=== PATIENT | female | born 1945 | race Caucasian/White ===

== ENCOUNTER 2018-02-08 16:21 | Emergency (ER) | payer MEDICARE, MEDICAID ==
[~2018-02-08] VITALS: Ht 160 cm; Wt 73.0 kg
[~2018-02-08 16:21] MED LIST: AMLO5TAB16 PO; ARIP10TA9 PO; ATEN50TA41 PO; ATOR10TA87 PO; BACL10TA2 PO; BUSP5TAB PO; CHLO25TA2 PO; CHOL100046 PO; DEXL60CA3 PO; DONE-46 PO; GABA-532 PO; IBUP-1986 PO; LEVO25TA7 PO; LORA0.5T PO; LORA10TA7 PO; OXYB5TAB11 PO; PHEN15CA PO; POTA10TA36 PO; PRAZ1CAP5 PO; PRIM250T48 PO; SERT50TA10 PO
[2018-02-08 17:15] VITALS: BP 142/82
[2018-02-08] MEDS ORDERED: ALBU6.7H INH (17:19)
[2018-02-08] MEDS ORDERED: PRED20TA PO (17:19)
[2018-02-08] MEDS ORDERED: ketorolac tromethamine 15mg/ml inj. IM ONE (17:20)
[2018-02-08] MEDS ORDERED: albuterol 2.5 MG/3 ML nebule NEB ONE (17:20)
[2018-02-08] MEDS ORDERED: predniSONE 20 mg tablet PO ONE (17:20)
== END 2018-02-08 18:12 | disposition home or self-care (01) ==
LOC: ER 16:22
DX: J44.1 Chronic obstructive pulmonary disease with (acute) exacerbation (principal); I10 Essential (primary) hypertension; K21.9 Gastro-esophageal reflux disease without esophagitis; G89.29 Other chronic pain; Z88.2 Allergy status to sulfonamides; Z60.2 Problems related to living alone; Z79.899 Other long term (current) drug therapy
CPT/HCPCS: 93005; 94640; 94760; 96372; 99283; J1885; J7512; 99285

== ENCOUNTER 2018-04-03 20:49 | Emergency (ER) | payer MEDICARE, MEDICAID ==
[~2018-04-03] VITALS: Ht 160 cm; Wt 78.1 kg
[~2018-04-03 20:49] MED LIST changes: +ALBU6.7H INH
[2018-04-03] MEDS ORDERED: ketorolac trometh. 30mg/ml inj. IM ONE (21:20)
[2018-04-03 21:53] VITALS: BP 134/77
== END 2018-04-03 21:55 | disposition home or self-care (01) ==
LOC: ER 20:50
DX: S16.1XXA Strain of muscle, fascia and tendon at neck level, initial encounter (principal); I10 Essential (primary) hypertension; J44.9 Chronic obstructive pulmonary disease, unspecified; K21.9 Gastro-esophageal reflux disease without esophagitis; Z86.19 Personal history of other infectious and parasitic diseases; G89.29 Other chronic pain; Z60.2 Problems related to living alone; Z88.2 Allergy status to sulfonamides; Z88.8 Allergy status to other drugs, medicaments and biological substances; Z79.899 Other long term (current) drug therapy; V89.2XXA Person injured in unspecified motor-vehicle accident, traffic, initial encounter; Y93.89 Activity, other specified; Y92.89 Other specified places as the place of occurrence of the external cause; Y99.8 Other external cause status
CPT/HCPCS: 96372; 99283; J1885

== ENCOUNTER 2018-08-24 14:25 | Emergency (ER) | payer MEDICARE, MEDICAID ==
[~2018-08-24] VITALS: Ht 160 cm; Wt 64.0 kg
[2018-08-24 14:34] VITALS: BP 111/60
[2018-08-24] MEDS ORDERED: LIDOcaine 5% patch TP ONE (15:20)
[2018-08-24] MEDS ORDERED: acetaminophen 325mg tablet PO ONE (15:20)
[2018-08-24] MEDS ORDERED: LIDO700A32 TOP (15:23)
[2018-08-24] MEDS ORDERED: ACET-812 PO (15:23)
== END 2018-08-24 16:18 | disposition home or self-care (01) ==
LOC: ER 14:25
DX: G89.29 Other chronic pain (principal); M25.561 Pain in right knee; I10 Essential (primary) hypertension; J44.9 Chronic obstructive pulmonary disease, unspecified; K21.9 Gastro-esophageal reflux disease without esophagitis; Z60.2 Problems related to living alone; Z86.19 Personal history of other infectious and parasitic diseases; Z88.2 Allergy status to sulfonamides; Z88.8 Allergy status to other drugs, medicaments and biological substances; Z79.899 Other long term (current) drug therapy
CPT/HCPCS: 99283

== ENCOUNTER 2018-10-11 17:17 | Emergency (ER) | payer MEDICARE, MEDICAID ==
[~2018-10-11] VITALS: Ht 160 cm; Wt 74.1 kg
[~2018-10-11 17:17] MED LIST changes: +LIDO700A32 TOP
[2018-10-11 17:19] VITALS: BP 152/69
--- NOTE | 2018-10-11 17:28 | NUR ---
AAMIR DURÁN IN TO SEE PT IN TRIAGE. PT STABLE TO WAIT IN LOBBY
[2018-10-11] MEDS ORDERED: dexamethasone sod phosphate 10mg/ml inj PO STA (18:57)
[2018-10-11] MEDS ORDERED: cetirizine 10mg tablet PO ONE (19:00)
[2018-10-11] MEDS ORDERED: CETI-102 PO (19:02)
== END 2018-10-11 19:20 | disposition home or self-care (01) ==
LOC: ER 17:17
DX: L53.8 Other specified erythematous conditions (principal); T46.7X5A Adverse effect of peripheral vasodilators, initial encounter; L29.9 Pruritus, unspecified; I10 Essential (primary) hypertension; J44.9 Chronic obstructive pulmonary disease, unspecified; K21.9 Gastro-esophageal reflux disease without esophagitis; G89.29 Other chronic pain; Z88.2 Allergy status to sulfonamides; Z88.8 Allergy status to other drugs, medicaments and biological substances; Z79.899 Other long term (current) drug therapy; Y92.89 Other specified places as the place of occurrence of the external cause
CPT/HCPCS: 99283; J1100

== ENCOUNTER 2019-02-16 14:33 | Emergency (ER) | payer MEDICARE, MEDICAID ==
[~2019-02-16] VITALS: Ht 160 cm; Wt 72.7 kg
[~2019-02-16 14:33] MED LIST changes: +CETI-102 PO
[2019-02-16 14:38] VITALS: BP 146/68
[2019-02-16] MEDS ORDERED: ketorolac trometh. 30mg/ml inj. IM ONE (14:55)
[2019-02-16] MEDS ORDERED: TRAM50TA2 PO (15:27)
== END 2019-02-16 15:48 | disposition home or self-care (01) ==
LOC: ER 14:33
DX: S82.001A Unspecified fracture of right patella, initial encounter for closed fracture (principal); G89.29 Other chronic pain; I10 Essential (primary) hypertension; J44.9 Chronic obstructive pulmonary disease, unspecified; K21.9 Gastro-esophageal reflux disease without esophagitis; Z86.19 Personal history of other infectious and parasitic diseases; Z60.2 Problems related to living alone; Z88.2 Allergy status to sulfonamides; Z88.8 Allergy status to other drugs, medicaments and biological substances; Z79.899 Other long term (current) drug therapy; X58.XXXA Exposure to other specified factors, initial encounter; Y93.89 Activity, other specified; Y92.89 Other specified places as the place of occurrence of the external cause; Y99.8 Other external cause status
CPT/HCPCS: 73564; 96372; 99283; J1885

== ENCOUNTER 2019-02-23 02:29 | Emergency (ER) | payer MEDICARE, MEDICAID ==
[~2019-02-23] VITALS: Ht 160 cm; Wt 76.0 kg
[2019-02-23 02:33] VITALS: BP 130/59
== END 2019-02-23 04:13 | disposition left against medical advice (07) ==
LOC: ER 02:30
DX: M25.561 Pain in right knee (principal); Z53.21 Procedure and treatment not carried out due to patient leaving prior to being seen by health care provider

== ENCOUNTER 2019-03-01 15:56 | Emergency (ER) | payer MEDICARE, MEDICAID ==
[~2019-03-01] VITALS: Ht 161.3 cm; Wt 70.9 kg
[~2019-03-01 15:56] MED LIST changes: -PRIM250T48 PO; +PRIM250T8 PO
[2019-03-01] MEDS ORDERED: diphenhydrAMINE 50 mg/ml inj IV ONE (16:25)
[2019-03-01] MEDS ORDERED: ketorolac tromethamine 15mg/ml inj. IV ONE (16:25)
[2019-03-01] MEDS ORDERED: metoclopramide 5 mg/ml inj IV ONE (16:25)
[2019-03-01] MEDS ORDERED: normal saline 1000ML IV soln IVB ONE (16:25)
[2019-03-01 17:07] LABS: BASOPHILS # (AUTO) 0.1 X10'3 (0-0.2); BASOPHILS % (AUTO) 0.8 % (0-1); EOSINOPHILS # (AUTO) 0.1 X10'3 (0-0.9); EOSINOPHILS % (AUTO) 1.1 % (0-6); HEMATOCRIT 37.3 % (35.0-45.0); HEMOGLOBIN 12.4 g/dl (12.0-16.0); LYMPHOCYTES # (AUTO) 1.4 X10'3 (1.1-4.8); LYMPHOCYTES % (AUTO) 17.4 % (21-51); MEAN CORPUSCULAR HEMOGLOBIN 28.4 PG (27.0-31.0); MEAN CORPUSCULAR HGB CONC 33.3 g/dL (33.0-36.5); MEAN CORPUSCULAR VOLUME 85.1 FL (78-98); MEAN PLATELET VOLUME 8.2 FL (7.4-10.4); MONOCYTES # (AUTO) 0.7 X10'3 (0-0.9); MONOCYTES % (AUTO) 8.6 % (2-12); NEUTROPHILS # (AUTO) 5.8 X10'3 (1.8-7.7); NEUTROPHILS % (AUTO) 72.1 % (42-75); PLATELET COUNT 215 X10'3 (140-440); RED BLOOD COUNT 4.38 X10'6 (4.20-5.60); RED CELL DISTRIBUTION WIDTH 14.7 % (11.5-14.5)
[2019-03-01 17:25] LABS: ALANINE AMINOTRANSFERASE 19 U/L (12-78); ALBUMIN 3.9 G/DL (3.4-5.0); ALKALINE PHOSPHATASE 47 IU/L (46-116); ANION GAP 6 (8-16); ASPARTATE AMINO TRANSFERASE 13 U/L (10-37); BILIRUBIN,TOTAL 0.5 MG/DL (0.1-1.0); BLOOD UREA NITROGEN 10 MG/DL (7-18); BUN/CREATININE RATIO 13.2 (6.6-38.0); CALCIUM 9.6 MG/DL (8.5-10.1); CHLORIDE 101 MMOL/L (99-107); CREATININE 0.76 MG/DL (0.40-0.90); GLUCOSE 114 MG/DL (70-104); POTASSIUM 3.1 MMOL/L (3.5-5.1); SODIUM 137 MMOL/L (135-145); TOTAL CARBON DIOXIDE 30.1 MMOL/L (24-32); TOTAL PROTEIN 7.7 G/DL (6.4-8.2); eGFR 75 ML/MIN
[2019-03-01 17:30] LABS: LIPASE 85 U/L (73-393)
[2019-03-01] MEDS ORDERED: potassium Cl 20 mEq SR tablet PO STA (17:35)
[2019-03-01] MEDS ORDERED: morphine 4 MG/ML inj SYRINge IV ONE (17:55)
[2019-03-01] MEDS ORDERED: metoprolol tartrate 1mg/ml inj IV ONE (18:00)
--- NOTE | 2019-03-01 18:55 | NUR ---
LUIS ARMANDO SHERMAN MADE AWARE OF BP 161/81 AFTER METOPROLOL IVP (SEE EMAR), HR DROPPED TO 48 AT 1848, PER LUIS ARMANDO OKAY TO DC. PATIENT DENIES ANY DISTRESS, FAMILY AT BEDSIDE.
[2019-03-01 19:02] VITALS: BP 161/81
== END 2019-03-01 19:08 | disposition home or self-care (01) ==
LOC: ER 15:56
DX: R51 Headache (principal); G89.29 Other chronic pain; M54.9 Dorsalgia, unspecified; R10.84 Generalized abdominal pain; R11.2 Nausea with vomiting, unspecified; I10 Essential (primary) hypertension; J44.9 Chronic obstructive pulmonary disease, unspecified; K21.9 Gastro-esophageal reflux disease without esophagitis; Z86.19 Personal history of other infectious and parasitic diseases; Z88.2 Allergy status to sulfonamides; Z79.899 Other long term (current) drug therapy
CPT/HCPCS: 36415; 80053; 83690; 84484; 85025; 93005; 96374; 96375; 99284; J1200; J1885; J2270; J2765; J7030; 96361; J3490

== ENCOUNTER 2019-04-21 22:02 | Emergency (ER) | payer MEDICARE, MEDICAID ==
[~2019-04-21] VITALS: Ht 161.3 cm; Wt 68.0 kg
[~2019-04-21 22:02] MED LIST changes: -ALBU6.7H INH; +ALBU6.7H9 INH; +ALBU8HFA PO; -OXYB5TAB11 PO; +OXYB5TAB16 PO; +PRED20TA PO
[2019-04-22] MEDS ORDERED: TRAM50TA2 PO (00:03)
[2019-04-22 00:13] VITALS: BP 138/83
== END 2019-04-22 00:10 | disposition home or self-care (01) ==
LOC: ER 22:03
DX: M25.561 Pain in right knee (principal); G89.29 Other chronic pain; I10 Essential (primary) hypertension; J44.9 Chronic obstructive pulmonary disease, unspecified; K21.9 Gastro-esophageal reflux disease without esophagitis; M19.90 Unspecified osteoarthritis, unspecified site; F41.9 Anxiety disorder, unspecified; F32.9 Major depressive disorder, single episode, unspecified; Z86.19 Personal history of other infectious and parasitic diseases; Z88.2 Allergy status to sulfonamides; Z88.8 Allergy status to other drugs, medicaments and biological substances; Z79.899 Other long term (current) drug therapy
CPT/HCPCS: 99283

== ENCOUNTER 2019-05-09 12:59 | Emergency (ER) | payer MEDICARE, MEDICAID ==
[~2019-05-09] VITALS: Ht 160 cm; Wt 65.9 kg
[~2019-05-09 12:59] MED LIST changes: +TRAM50TA2 PO
[2019-05-09 13:21] VITALS: BP 103/60
[2019-05-09] MEDS ORDERED: DICL100G15 TOP (14:27)
== END 2019-05-09 14:47 | disposition home or self-care (01) ==
LOC: ER 12:59
DX: M25.561 Pain in right knee (principal); I10 Essential (primary) hypertension; J44.9 Chronic obstructive pulmonary disease, unspecified; K21.9 Gastro-esophageal reflux disease without esophagitis; E07.9 Disorder of thyroid, unspecified; M19.90 Unspecified osteoarthritis, unspecified site; G89.29 Other chronic pain; F41.9 Anxiety disorder, unspecified; F32.9 Major depressive disorder, single episode, unspecified; Z88.2 Allergy status to sulfonamides; Z88.8 Allergy status to other drugs, medicaments and biological substances; Z79.899 Other long term (current) drug therapy
CPT/HCPCS: 99283

== ENCOUNTER 2019-08-31 08:36 | Inpatient (IN) | payer MEDICARE, MEDICAID ==
[2019-08-19 17:20] LABS: ALBUMIN 3.9 G/DL (3.4-5.0); ALKALINE PHOSPHATASE 60 IU/L (46-116); BASOPHILS # (AUTO) 0.1 X10'3 (0-0.2); BASOPHILS % (AUTO) 0.8 % (0-1); BLOOD UREA NITROGEN 15 MG/DL (7-18); BUN/CREATININE RATIO 16.3 (6.6-38.0); CALCIUM 9.7 MG/DL (8.5-10.1); CHLORIDE 101 MMOL/L (99-107); CREATININE 0.92 MG/DL (0.40-0.90); EOSINOPHILS # (AUTO) 0.3 X10'3 (0-0.9); EOSINOPHILS % (AUTO) 3.4 % (0-6); LYMPHOCYTES # (AUTO) 2.2 X10'3 (1.1-4.8); LYMPHOCYTES % (AUTO) 28.4 % (21-51); MEAN CORPUSCULAR HEMOGLOBIN 27.6 PG (27.0-31.0); MEAN CORPUSCULAR HGB CONC 33.4 g/dL (33.0-36.5); MEAN CORPUSCULAR VOLUME 82.7 FL (78-98); MEAN PLATELET VOLUME 7.3 FL (7.4-10.4); MONOCYTES # (AUTO) 0.9 X10'3 (0-0.9); MONOCYTES % (AUTO) 11.8 % (2-12); NEUTROPHILS # (AUTO) 4.3 X10'3 (1.8-7.7); NEUTROPHILS % (AUTO) 55.6 % (42-75); PRE OP ALT 16 U/L (30-65); PRE OP ANION GAP 10 (8-16); PRE OP AST 22 U/L (10-37); PRE OP BILIRUB, TOTAL 0.4 MG/DL (0.0-1.0); PRE OP GLUCOSE 95 MG/DL (70-104); PRE OP HEMATOCRIT 39.4 % (35.0-45.0); PRE OP HEMOGLOBIN 13.2 g/dL (12.0-16.0); PRE OP PLATELET COUNT 272 X10'3 (140-440); PRE OP POTASSIUM 3.7 MMOL/L (3.4-5.1); PRE OP SODIUM 142 MMOL/L (135-145); RED BLOOD COUNT 4.77 X10'6 (4.20-5.60); RED CELL DISTRIBUTION WIDTH 15.3 % (11.5-14.5); TOTAL CARBON DIOXIDE 31.3 MMOL/L (24-32); TOTAL PROTEIN 7.8 G/DL (6.4-8.2); eGFR 60 ML/MIN
[2019-08-19 17:41] LABS: HEMOGLOBIN A1C 6.1 % (4.5-6.2)
[~2019-08-31] VITALS: Ht 160 cm; Wt 67.2 kg
[2019-08-31] VITALS (17 sets, daily range): BP systolic 113–181; BP diastolic 57–116
[~2019-08-31 08:36] MED LIST changes: +ALBU18HF2 INH; -ALBU6.7H9 INH; -ALBU8HFA PO; -AMLO5TAB16 PO; -ATEN50TA41 PO; -BUSP5TAB PO; -CETI-102 PO; -CHLO25TA2 PO; +DOCUMENT DATE & TIME OF BETA-BLOCKER PO ONE; +GABA800T11 PO; +HYDR12.5 PO; -IBUP-1986 PO; -LEVO25TA7 PO; -LIDO700A32 TOP; -LORA0.5T PO; -LORA10TA7 PO; +METF-436 PO; -PHEN15CA PO; -POTA10TA36 PO; -PRAZ1CAP5 PO; -PRED20TA PO; -PRIM250T8 PO; +PROP20TA6 PO; -SERT50TA10 PO; -TRAM50TA2 PO; +TRIA10.8 NS; +TRINTELLIX PO; +albuterol 2.5 MG/3 ML nebule NEB ONE; +famotidine 20mg tablet PO ONE; +ringers solution, lacted 1,000 ML IV SCH
[2019-08-31] MEDS ORDERED: vancomycin/NS 1 GM ADD-VANTAGE 250 ML X 1 DOSE IV ONE (09:00)
[2019-08-31] MEDS ORDERED: ceFAZolin 2gm in dextrose, iso 50 ML IV ONE (09:00)
[2019-08-31] MEDS ORDERED: cefazolin/dext.iso 2gm/100ml 100 ML IV ONE (09:00)
[2019-08-31] MEDS ORDERED: ceFAZolin 1000mg inj ONE (09:00)
[2019-08-31] MEDS ORDERED: GABA-534 PO (09:13)
[2019-08-31] MEDS ORDERED: TRINTELLIX PO (09:19)
[2019-08-31] MEDS ORDERED: UMEC1DIS PO (09:20)
--- NOTE | 2019-08-31 09:52 | NUR ---
PT STATES SHE'S NOT DIABETIC, SHE ASKED HER DR FOR IT "TO BALANCE HER SUGAR". SO THE MD GAVE IT TO HER
[2019-08-31] MEDS ORDERED: tetracaine 1% (10mg/ml) pres. free inj. ONE (10:20)
[2019-08-31] MEDS ORDERED: MIDAZolam 5mg/5ml vial ONE (10:26)
[2019-08-31] MEDS ORDERED: fentaNYL/PF 50MCG/1 ML 2ML syringe ONE (10:26)
[2019-08-31] MEDS ORDERED: propofol inj 20 ML IV ONE ×2 (10:28→11:00)
[2019-08-31] MEDS ORDERED: tranexamic acid inj. 1,000 MG in normal saline 100ml IV soln 100 ML IV ONE (10:40)
[2019-08-31] MEDS ORDERED: LIDOcaine 1%/PF 5ML 10 MG/ML VIAL ONE (11:00)
[2019-08-31] MEDS ORDERED: BUPIVAcaine/PF 7.5mg/ml (0.75%) 10ml vial ONE (11:00)
[2019-08-31] MEDS ORDERED: diphenhydrAMINE 50 mg/ml inj ONE ×2 (11:00→12:21)
[2019-08-31] MEDS ORDERED: ROPIVAcaine 0.2%/PF PUMP/bolus 550 ML ADDCANAL SCH (12:04)
[2019-08-31] MEDS ORDERED: ringers solution, lacted 1,000 ML IV SCH (12:04)
[2019-08-31] MEDS ORDERED: HYDROmorphone inj. 0.5 MG/0.5 ML DISP.SYRIN IV PRN (12:05)
[2019-08-31] MEDS ORDERED: morphine 4 MG/ML inj SYRINge IV PRN (12:05)
[2019-08-31] MEDS ORDERED: ondansetron/PF 4mg/2ml inj IV PRN ×2 (12:05→13:30)
[2019-08-31] MEDS ORDERED: ROPIVAcaine 0.5% (5mg/ml) 30ml vial ONE (12:20)
[2019-08-31] MEDS ORDERED: ePHEDrine 50MG/ML INJ. ONE (13:04)
--- NOTE | 2019-08-31 13:25 | NUR ---
ADMITTED TO PACU FROM OR ACCOMPANIED BY ANESTHESIA. INTIAL PHYSICAL ASSESSMENT DONE AND RECORDED. REPORT RECEIVED FROM ANESTHESIA.
[2019-08-31] MEDS ORDERED: bisacodyl 10mg suppository rectal RC PRN (13:30)
[2019-08-31] MEDS ORDERED: acetaminophen 325mg tablet PO PRN (13:30)
[2019-08-31] MEDS ORDERED: MESSAGE TO PHARMACY PO ONE (13:40)
[2019-08-31] MEDS ORDERED: insulin Lispro (HumaLOG) vial - multi-dose SQ SCH (13:40)
[2019-08-31] MEDS ORDERED: glucagon, human recombinant 1mg kit SUBCUT PRN (13:40)
[2019-08-31] MEDS ORDERED: dextrose ORAL solution 15 GM/59 ML bottle PO PRN ×2 (13:40)
[2019-08-31] MEDS ORDERED: dextrose 50%-water 50ml dispensing syringe IV PRN ×2 (13:40)
[2019-08-31] MEDS ORDERED: albuterol 2.5 MG/3 ML nebule NEB PRN (13:50)
[2019-08-31] MEDS: ROPIVAcaine 0.2%/PF PUMP/bolus 550 ML ADDCANAL SCH ×4 (14:20→20:27)
--- NOTE | 2019-08-31 14:25 | NUR ---
PACU DISCHARGE CRITERIA MET, REPORT GIVEN TO FLOOR. DENIES PAIN OR DISCOMFORT, TRANSFERRED TO ROOM IN STABLE GOOD CONDITION.
[2019-08-31] MEDS: potassium Cl 20mEq in NS 1,000 ML IV SCH (16:41)
[2019-08-31] MEDS: HYDROmorphone inj. 0.5 MG/0.5 ML DISP.SYRIN IV PRN (16:41)
[2019-08-31] MEDS: aspirin 81mg tab.chew PO SCH (17:30)
[2019-08-31] MEDS: ceFAZolin/D5W- 1GM premix 50 ML IV SCH (17:31)
--- NOTE | 2019-08-31 18:59 | NUR ---
REPORT REC'D FROM MARCELINO CRAWLEY.
[2019-08-31] MEDS: ROPIVAcaine 0.2% (10 MG/5 ML) BOLUS INJECTION INTERSCALE PRN ×3 (19:08→20:27)
--- NOTE | 2019-08-31 19:51 | NUR ---
pt is pushing the ropivocaine bolus q 30 mins and is up to 12ml/hr on dial. pt is still c/o pain 05/09 and has had dilaudid 0.5mg. will continue to use all available resources to relieve pain.
[2019-08-31] MEDS ORDERED: vancomycin/NS 1 GM ADD-VANTAGE 250 ML IV SCH (20:00)
[2019-08-31] MEDS: HYDROcodone/acetaminophen 10/325mg tab PO PRN (20:24)
[2019-08-31] MEDS: propranolol 10mg tablet PO SCH (20:25)
[2019-08-31] MEDS: donepezil 5mg tablet PO SCH (20:25)
[2019-08-31] MEDS: sennosides 8.6mg tablet PO SCH (20:25)
[2019-08-31] MEDS: insulin glargine (Lantus) pen - multi-dose SQ SCH (20:33)
[2019-09-01] VITALS (9 sets, daily range): BP systolic 110–155; BP diastolic 64–105
[2019-09-01] MEDS: HYDROcodone/acetaminophen 10/325mg tab PO PRN ×4 (00:27→17:35)
[2019-09-01] MEDS: ceFAZolin/D5W- 1GM premix 50 ML IV SCH (00:31)
--- NOTE | 2019-09-01 01:49 | NUR ---
PT CONTINUES TO USE ROPIVACAINE BOLUS AND IS NOW AT 14ML/HR MAX DOSE. NORCO 10/325 HAS BEEN ADMINISTERED AND PT SURGICAL LEG HAS BEEN REPOSITIONED, COLD PACK REPLACED, FEET ELEVATED. PT STATES THAT SHE HAS SOME RELIEF BUT THEN SHE STATES 9/1O PAIN. NON VERBAL PAIN SCALE, PT SEEMS TO BE COMFORTABLE, ASKING FOR LITES AND HEAT TO BE TURNED UP AND DOWN, MAKEUP CASE, ETC. WE WILL CONTINUE TO MONITOR PAIN AND COMFORT LEVEL.
[2019-09-01] MEDS: potassium Cl 20mEq in NS 1,000 ML IV SCH ×3 (02:49→23:08)
--- NOTE | 2019-09-01 04:48 | NUR ---
PT GIVEN NORCO 10/325 1 TAB FOR PAIN AND ALSO REMINDED TO PUSH HER BOLUS DOSE OF ROPIVACAINE. THE DIAL IS AT 14ML/HR. REPLACED COLD PACK AND READJUSTED KNEE WRAP REQUESTED BY PT. ELEVATED FOOT ON PILLOW. EDUCATED TO USE INCENTIVE SPIROMETER.
--- NOTE | 2019-09-01 06:11 | NUR ---
REPORT GIVEN TO MARCELINO MARTINEZ.
[2019-09-01 07:06] LABS: BASOPHILS % (AUTO) 0.4 % (0-1); EOSINOPHILS # (AUTO) 0.1 X10'3 (0-0.9); EOSINOPHILS % (AUTO) 0.8 % (0-6); HEMATOCRIT 29.8 % (35.0-45.0); LYMPHOCYTES # (AUTO) 1.1 X10'3 (1.1-4.8); MEAN CORPUSCULAR HEMOGLOBIN 27.9 PG (27.0-31.0); MEAN CORPUSCULAR HGB CONC 33.4 g/dL (33.0-36.5); MEAN CORPUSCULAR VOLUME 83.4 FL (78-98); MEAN PLATELET VOLUME 7.7 FL (7.4-10.4); MONOCYTES # (AUTO) 1.3 X10'3 (0-0.9); MONOCYTES % (AUTO) 15.4 % (2-12); NEUTROPHILS # (AUTO) 5.7 X10'3 (1.8-7.7); NEUTROPHILS % (AUTO) 69.4 % (42-75); PLATELET COUNT 176 X10'3 (140-440); RED BLOOD COUNT 3.58 X10'6 (4.20-5.60); WHITE BLOOD COUNT 8.2 X10'3 (4.5-11.0)
[2019-09-01] MEDS: HYDROmorphone inj. 0.5 MG/0.5 ML DISP.SYRIN IV PRN ×2 (07:20→12:25)
[2019-09-01 07:37] LABS: ALANINE AMINOTRANSFERASE 13 U/L (12-78); ALBUMIN 2.8 G/DL (3.4-5.0); ALBUMIN/GLOBULIN RATIO 0.9 (1.1-1.5); ALKALINE PHOSPHATASE 42 IU/L (46-116); ANION GAP 9 (8-16); ASPARTATE AMINO TRANSFERASE 16 U/L (10-37); BILIRUBIN,TOTAL 0.5 MG/DL (0.1-1.0); BLOOD UREA NITROGEN 9 MG/DL (7-18); BUN/CREATININE RATIO 11.8 (6.6-38.0); CALCIUM 8.5 MG/DL (8.5-10.1); CHLORIDE 104 MMOL/L (99-107); CREATININE 0.76 MG/DL (0.40-0.90); GLUCOSE 152 MG/DL (70-104); POTASSIUM 3.5 MMOL/L (3.5-5.1); SODIUM 137 MMOL/L (135-145); TOTAL CARBON DIOXIDE 23.9 MMOL/L (24-32); TOTAL PROTEIN 5.9 G/DL (6.4-8.2); eGFR 75 ML/MIN
[2019-09-01] MEDS: aspirin 81mg tab.chew PO SCH ×2 (08:03→17:34)
[2019-09-01] MEDS: propranolol 10mg tablet PO SCH ×2 (08:03→20:42)
[2019-09-01] MEDS: oxybutynin 5mg tablet PO SCH (08:04)
[2019-09-01] MEDS: HYDROchlorothiazide 12.5mg capsule PO SCH (08:05)
[2019-09-01] MEDS: pantoprazole 40mg Tablet.DR PO SCH (08:05)
--- NOTE | 2019-09-01 11:40 | NUR ---
Student Medication Administration:For this medication-pass time frame [id number], all medications were reviewed, administered and documented per hospital policy by Izabella Dang. Student documentation:I have reviewed and agree with all interventions, assessments performed and documented by Izabella Dang.
--- NOTE | 2019-09-01 14:11 | NUR ---
Joint replacement consult: Pt seen by CRISTOBAL for written/verbal high protein ed w/ RD contact information provided. Pt agrees to cottage cheese and fruit at dinner tonight as well as w/ all breakfasts; dietary notified. Addendum: 09/01/19 at [address] Amended: Links added.
[2019-09-01] MEDS: ROPIVAcaine 0.2%/PF PUMP/bolus 550 ML ADDCANAL SCH (15:57)
[2019-09-01] MEDS: donepezil 5mg tablet PO SCH (20:42)
[2019-09-01] MEDS: diphenhydrAMINE 25mg capsule PO PRN (20:42)
[2019-09-01] MEDS: ketorolac tromethamine 15mg/ml inj. IV SCH (20:43)
[2019-09-01] MEDS: sennosides 8.6mg tablet PO SCH (20:43)
[2019-09-01] MEDS: insulin glargine (Lantus) pen - multi-dose SQ SCH (20:51)
[2019-09-02] MEDS: ketorolac tromethamine 15mg/ml inj. IV SCH ×4 (02:14→21:02)
[2019-09-02] MEDS: ROPIVAcaine 0.2%/PF PUMP/bolus 550 ML ADDCANAL SCH ×2 (05:40→17:32)
[2019-09-02 06:00] VITALS: BP 140/75
--- NOTE | 2019-09-02 06:00 | NUR ---
Patient in room [facility]TH[facility] 4015. I have received report from HUDSON BENSON and had the opportunity to ask questions and assume patient care.
[2019-09-02 06:01] LABS: BASOPHILS % (AUTO) 0.4 % (0-1); EOSINOPHILS # (AUTO) 0.1 X10'3 (0-0.9); EOSINOPHILS % (AUTO) 0.8 % (0-6); HEMATOCRIT 26.7 % (35.0-45.0); LYMPHOCYTES # (AUTO) 1.5 X10'3 (1.1-4.8); MEAN CORPUSCULAR HGB CONC 33.6 g/dL (33.0-36.5); MEAN CORPUSCULAR VOLUME 83.3 FL (78-98); MEAN PLATELET VOLUME 7.6 FL (7.4-10.4); MONOCYTES # (AUTO) 1.4 X10'3 (0-0.9); MONOCYTES % (AUTO) 15.9 % (2-12); NEUTROPHILS # (AUTO) 5.7 X10'3 (1.8-7.7); NEUTROPHILS % (AUTO) 65.9 % (42-75); PLATELET COUNT 169 X10'3 (140-440); RED CELL DISTRIBUTION WIDTH 14.8 % (11.5-14.5); WHITE BLOOD COUNT 8.6 X10'3 (4.5-11.0)
[2019-09-02 06:14] LABS: ALANINE AMINOTRANSFERASE 8 U/L (12-78); ALBUMIN 2.5 G/DL (3.4-5.0); ALBUMIN/GLOBULIN RATIO 0.8 (1.1-1.5); ALKALINE PHOSPHATASE 37 IU/L (46-116); ANION GAP 10 (8-16); ASPARTATE AMINO TRANSFERASE 15 U/L (10-37); BILIRUBIN,TOTAL 0.5 MG/DL (0.1-1.0); BLOOD UREA NITROGEN 10 MG/DL (7-18); BUN/CREATININE RATIO 13.2 (6.6-38.0); CALCIUM 8.8 MG/DL (8.5-10.1); CHLORIDE 106 MMOL/L (99-107); CREATININE 0.76 MG/DL (0.40-0.90); GLUCOSE 104 MG/DL (70-104); POTASSIUM 3.6 MMOL/L (3.5-5.1); SODIUM 141 MMOL/L (135-145); TOTAL CARBON DIOXIDE 24.8 MMOL/L (24-32); TOTAL PROTEIN 5.7 G/DL (6.4-8.2); eGFR 75 ML/MIN
--- NOTE | 2019-09-02 06:16 | NUR ---
REPORT GIVEN TO MARCELINO COSTELLO.
[2019-09-02] MEDS: aspirin 81mg tab.chew PO SCH ×2 (08:09→17:31)
[2019-09-02] MEDS: pantoprazole 40mg Tablet.DR PO SCH (08:09)
[2019-09-02] MEDS: oxybutynin 5mg tablet PO SCH (08:10)
[2019-09-02] MEDS: HYDROchlorothiazide 12.5mg capsule PO SCH (08:10)
[2019-09-02] MEDS: propranolol 10mg tablet PO SCH ×2 (08:10→21:03)
[2019-09-02] MEDS: HYDROcodone/acetaminophen 10/325mg tab PO PRN (08:11)
[2019-09-02] MEDS: magnesium hydroxide 30ml (MOM) UD suspension PO PRN (08:11)
[2019-09-02] MEDS: diphenhydrAMINE 25mg capsule PO PRN ×3 (09:25→21:06)
[2019-09-02] MEDS: gabapentin 400mg capsule PO SCH ×2 (09:25→21:02)
[2019-09-02 10:00] VITALS: BP 127/53
[2019-09-02] MEDS: HYDROmorphone inj. 0.5 MG/0.5 ML DISP.SYRIN IV PRN (12:15)
[2019-09-02 18:00] VITALS: BP 130/69
--- NOTE | 2019-09-02 18:00 | NUR ---
Problems reprioritized. Patient report given, questions answered & plan of care reviewed with HUDSON BENSON.
--- NOTE | 2019-09-02 18:31 | NUR ---
REPORT REC'D FROM MARCELINO COSTELLO.
[2019-09-02] MEDS: insulin glargine (Lantus) pen - multi-dose SQ SCH (21:00)
[2019-09-02] MEDS: donepezil 5mg tablet PO SCH (21:02)
[2019-09-02] MEDS: sennosides 8.6mg tablet PO SCH (21:03)
[2019-09-02 21:31] VITALS: BP 137/65
[2019-09-03] MEDS: ketorolac tromethamine 15mg/ml inj. IV SCH ×3 (02:55→13:33)
[2019-09-03] MEDS: diphenhydrAMINE 25mg capsule PO PRN ×2 (03:36→13:32)
[2019-09-03 06:00] VITALS: BP 119/68
--- NOTE | 2019-09-03 06:00 | NUR ---
Patient in room [facility]TH[facility] 4015. I have received report from HUDSON BENSON and had the opportunity to ask questions and assume patient care.
--- NOTE | 2019-09-03 06:16 | NUR ---
REPORT GIVEN TO MARCELINO COSTELLO.
[2019-09-03 06:52] LABS: BASOPHILS # (AUTO) 0.1 X10'3 (0-0.2); BASOPHILS % (AUTO) 0.8 % (0-1); EOSINOPHILS # (AUTO) 0.2 X10'3 (0-0.9); EOSINOPHILS % (AUTO) 2.7 % (0-6); HEMATOCRIT 26.3 % (35.0-45.0); HEMOGLOBIN 8.9 g/dl (12.0-16.0); LYMPHOCYTES # (AUTO) 1.7 X10'3 (1.1-4.8); LYMPHOCYTES % (AUTO) 23.2 % (21-51); MEAN CORPUSCULAR HEMOGLOBIN 27.9 PG (27.0-31.0); MEAN CORPUSCULAR HGB CONC 33.7 g/dL (33.0-36.5); MEAN CORPUSCULAR VOLUME 82.7 FL (78-98); MEAN PLATELET VOLUME 7.8 FL (7.4-10.4); MONOCYTES # (AUTO) 0.9 X10'3 (0-0.9); MONOCYTES % (AUTO) 12.3 % (2-12); NEUTROPHILS # (AUTO) 4.5 X10'3 (1.8-7.7); PLATELET COUNT 182 X10'3 (140-440); RED BLOOD COUNT 3.17 X10'6 (4.20-5.60); RED CELL DISTRIBUTION WIDTH 15.1 % (11.5-14.5); WHITE BLOOD COUNT 7.3 X10'3 (4.5-11.0)
[2019-09-03 07:10] LABS: ALANINE AMINOTRANSFERASE 10 U/L (12-78); ALBUMIN 2.5 G/DL (3.4-5.0); ALBUMIN/GLOBULIN RATIO 0.7 (1.1-1.5); ALKALINE PHOSPHATASE 40 IU/L (46-116); ANION GAP 9 (8-16); ASPARTATE AMINO TRANSFERASE 21 U/L (10-37); BILIRUBIN,TOTAL 0.4 MG/DL (0.1-1.0); BLOOD UREA NITROGEN 15 MG/DL (7-18); BUN/CREATININE RATIO 16.5 (6.6-38.0); CALCIUM 8.8 MG/DL (8.5-10.1); CHLORIDE 104 MMOL/L (99-107); CREATININE 0.91 MG/DL (0.40-0.90); GLUCOSE 94 MG/DL (70-104); POTASSIUM 3.8 MMOL/L (3.5-5.1); SODIUM 139 MMOL/L (135-145); TOTAL CARBON DIOXIDE 25.7 MMOL/L (24-32); TOTAL PROTEIN 6.2 G/DL (6.4-8.2); eGFR 61 ML/MIN
[2019-09-03] MEDS: aspirin 81mg tab.chew PO SCH (07:34)
[2019-09-03] MEDS: pantoprazole 40mg Tablet.DR PO SCH (07:34)
[2019-09-03] MEDS: propranolol 10mg tablet PO SCH (07:36)
[2019-09-03] MEDS: oxybutynin 5mg tablet PO SCH (07:36)
[2019-09-03] MEDS: gabapentin 400mg capsule PO SCH (07:37)
[2019-09-03] MEDS: HYDROchlorothiazide 12.5mg capsule PO SCH (07:37)
[2019-09-03] MEDS: magnesium hydroxide 30ml (MOM) UD suspension PO PRN (09:06)
[2019-09-03] MEDS ORDERED: ASPI-1265 PO (09:18)
[2019-09-03] MEDS ORDERED: HYDR-4353 PO (09:18)
[2019-09-03 10:00] VITALS: BP 131/75
--- NOTE | 2019-09-03 13:45 | NUR ---
PATIENT DISCHARGED SAFELY WITH FRIEND. ALL BELONGINGS IN POSSESSION. PRESCRIPTION GIVEN TO PATIENT. PATIENT VERBALIZES UNDERSTANDING OFF DISCHARGE INSTRUCTIONS.
[2019-09-04] MEDS ORDERED: gabapentin 400mg capsule PO SCH (08:00)
== END 2019-09-03 13:45 | disposition home or self-care (01) | DRG 470 ==
LOC: PAS IN 08:36 → EDSTATUS 11:00 → ORTHO 4S 14:19
PROVIDERS: ADMIT Orthopaedic Surgery; ATTEND Orthopaedic Surgery
PROC: 3E0T3BZ Introduction of Anesthetic Agent into Peripheral Nerves and Plexi, Percutaneous Approach (ICD-10-PCS; 2019-08-31)
PROC: 0SRC069 Replacement of Right Knee Joint with Oxidized Zirconium on Polyethylene Synthetic Substitute, Cemented, Open Approach (ICD-10-PCS; principal; 2019-08-31 10:34)
DX: M17.11 Unilateral primary osteoarthritis, right knee (principal); D62 Acute posthemorrhagic anemia; E11.9 Type 2 diabetes mellitus without complications; I10 Essential (primary) hypertension; N32.81 Overactive bladder; J44.9 Chronic obstructive pulmonary disease, unspecified; B19.20 Unspecified viral hepatitis C without hepatic coma; K21.9 Gastro-esophageal reflux disease without esophagitis; Z87.891 Personal history of nicotine dependence; Z88.0 Allergy status to penicillin; Z88.8 Allergy status to other drugs, medicaments and biological substances; Z79.899 Other long term (current) drug therapy
CPT/HCPCS: 36415; 71046; 80053; 82948; 83036; 85025; 85610; 85730; 86885; 86900; 86901; 86920; 87081; 94640; 94760; 97110; 97112; 97116; 97161; 97530; A4215; A4618; A6455; A7000; C1713; C1758; C1776; G0378; J0690; J1170; J1200; J1815; J1885; J2250; J2704; J2795; J3010; J3370; J3480; J3490; J7120; Q0163

== ENCOUNTER 2019-10-10 18:35 | Emergency (ER) | payer MEDICARE, MEDICAID ==
[~2019-10-10] VITALS: Ht 160 cm; Wt 65.0 kg
[~2019-10-10 18:35] MED LIST changes: -ARIP10TA9 PO; +ASPI-1265 PO; -ATOR10TA87 PO; -BACL10TA2 PO; -CHOL100046 PO; -DOCUMENT DATE & TIME OF BETA-BLOCKER PO ONE; -GABA-532 PO; +GABA-534 PO; -GABA800T11 PO; +HYDR-4353 PO; -METF-436 PO; -TRIA10.8 NS; +UMEC1DIS PO; -albuterol 2.5 MG/3 ML nebule NEB ONE; -famotidine 20mg tablet PO ONE; -ringers solution, lacted 1,000 ML IV SCH
[2019-10-10 19:07] LABS: CLARITY,URINE SLIGHTLY CLOUDY (Clear); COLOR,URINE YELLOW (Yellow); GLUCOSE, URINE NEGATIVE (Neg); KETONES,URINE NEGATIVE (Neg); LEUKOCYTE ESTERASE ,URINE SMALL (Neg); NITRITES, URINE NEGATIVE (Neg); OCCULT BLOOD,URINE TRACE-LYSED (Neg); PH,URINE 7.5 (4.8-8.0); PROTEIN,URINE TRACE mg/dl (Neg)
[2019-10-10 19:16] LABS: UA COLLECTION TYPE CLN CATCH MIDSTREAM
[2019-10-10 19:17] LABS: BACTERIA,URINE FEW /HPF (Neg); RBC,URINE 0-2 /HPF (0-2); SQUAMOUS EPITHELIAL CELL,UR FEW /LPF (FEW); WBC,URINE 0-4 /HPF (0-4)
[2019-10-10] MEDS ORDERED: CEPH250T PO (21:11)
[2019-10-10] MEDS ORDERED: PHEN-716 PO (21:11)
[2019-10-10] MEDS ORDERED: ketorolac tromethamine 15mg/ml inj. IM ONE (21:15)
[2019-10-10 21:41] VITALS: BP 128/93
== END 2019-10-10 21:42 | disposition home or self-care (01) ==
LOC: ER 18:36
DX: N39.0 Urinary tract infection, site not specified (principal); R22.41 Localized swelling, mass and lump, right lower limb; I10 Essential (primary) hypertension; J44.9 Chronic obstructive pulmonary disease, unspecified; K21.9 Gastro-esophageal reflux disease without esophagitis; M19.90 Unspecified osteoarthritis, unspecified site; G89.29 Other chronic pain; Z88.2 Allergy status to sulfonamides; Z88.8 Allergy status to other drugs, medicaments and biological substances; Z79.899 Other long term (current) drug therapy; Z96.651 Presence of right artificial knee joint
CPT/HCPCS: 81001; 87088; 96372; 99283; J1885

== ENCOUNTER 2019-10-27 01:32 | Emergency (ER) | payer MEDICARE, MEDICAID ==
[~2019-10-27] VITALS: Ht 160 cm; Wt 62.2 kg
[~2019-10-27 01:32] MED LIST changes: +PHEN-716 PO
[2019-10-27 01:34] VITALS: BP 139/87
== END 2019-10-27 02:00 | disposition home or self-care (01) ==
LOC: ER 01:33
DX: F32.9 Major depressive disorder, single episode, unspecified (principal); Z76.0 Encounter for issue of repeat prescription; I10 Essential (primary) hypertension; J44.9 Chronic obstructive pulmonary disease, unspecified; K21.9 Gastro-esophageal reflux disease without esophagitis; M19.90 Unspecified osteoarthritis, unspecified site; G89.29 Other chronic pain; F41.9 Anxiety disorder, unspecified; Z88.2 Allergy status to sulfonamides; Z88.8 Allergy status to other drugs, medicaments and biological substances; Z79.899 Other long term (current) drug therapy
CPT/HCPCS: 99281

== ENCOUNTER 2020-01-03 06:38 | Emergency (ER) | payer MEDICARE, MEDICAID ==
[~2020-01-03] VITALS: Ht 160 cm; Wt 63.6 kg
[2020-01-03 06:39] VITALS: BP 179/82
[2020-01-03] MEDS ORDERED: valacyclovir 500mg tablet PO ONE (07:25)
[2020-01-03] MEDS ORDERED: valacyclovir 500mg tablet PO SCH (07:25)
[2020-01-03] MEDS ORDERED: VALA100031 PO (07:32)
[2020-01-03] MEDS ORDERED: CEPH500C5 PO (07:32)
[2020-01-03] MEDS ORDERED: LIDOcaine Viscous 15ml cup MM PRN (07:40)
--- NOTE | 2020-01-03 15:27 | NUR ---
PT CALLED WITH QUESTIONS REGARDING THE MEDICATION PERSCRIBED BY DR DOGULASS. PT WAS CONFUSED ABOUT WHAT SHE NEEDED TO TAKE AND FOR HOW LONG. PT STATES THAT SHE WAS GIVEN 4 TABLES OF WHAT SHE THOUGHT WAS KEFLEX PRIOR TO DISCHARGE. UPON REVIEWING PT'S CHART, PT WAS GIVEN 2000MG OF VALTREX (4 TABLETS) AND 2 PERSCRIPTIONS; KEFLEX 500MG, 1 CAP PO TID #15 AND VALTREX 1000MG, 1 TAB BID PO #10. PT WAS INSTUCTED ON HOW AND WHEN TO TAKE THE MEDICATION. PT STATES THAT SHE THOUGHT SHE TOOK THE KEFLEX AT HER VISIT AND TOOK A TABLET OF THE VALTREX AFTER SHE GOT HER PERSCRIPTIONS FILLED. PT WAS INFORMED THAT SHE DIDN'T NEED TO TAKE THE VALTREX ANYMORE TODAY BECAUSE SHE TOOK HER DAILY DOSE WHILE AT THE HOSPITAL. DISCUSSED SITUATION WITH LUIS ARMANDO KAUFMAN... PT HAD NO LABS DRAWN TODAY, BUT REVIEWED PREVIOUS LABS FROM 09/03/19 FOR POSSIBLE LIVER/KIDNEY COMPLICATIONS, AND NONE WERE NOTED PER LUIS ARMANDO CARREON. PT NOTIFIED THE MEDICATION IS PROCESSED THROUGH HER LIVER, AND PER THE PROVIDER, SHE IS TO NOT TAKE HER VALTREX TOMORROW MORNING (01/04/20), BUT START IT TOMORROW EVENING, AND THAT SHE IS TO START TAKING THE KEFLEX TODAY PERSCRIBED. PT STATED UNDERSTANDING TO HOW SHE IS TO TAKE HER MEDICATION. PT WAS ADVISED THAT AFTER SHE FINISHED HER 5 DAYS OF MEDICATIONS SHE IS NOT ANY BETTER THAT SHE IS TO F/U WITH HER PMD FOR FURTHER EVALUATION, OR SHE CAN RETURN TO THE ER. PT STATED UNDERSTANDING.
== END 2020-01-03 07:57 | disposition home or self-care (01) ==
LOC: ER 06:39
DX: B00.1 Herpesviral vesicular dermatitis (principal); I10 Essential (primary) hypertension; J44.9 Chronic obstructive pulmonary disease, unspecified; K21.9 Gastro-esophageal reflux disease without esophagitis; M19.90 Unspecified osteoarthritis, unspecified site; G89.29 Other chronic pain; F41.9 Anxiety disorder, unspecified; F32.9 Major depressive disorder, single episode, unspecified; Z60.2 Problems related to living alone; Z86.19 Personal history of other infectious and parasitic diseases; Z88.2 Allergy status to sulfonamides; Z88.8 Allergy status to other drugs, medicaments and biological substances; Z79.82 Long term (current) use of aspirin; Z79.2 Long term (current) use of antibiotics; Z79.899 Other long term (current) drug therapy
CPT/HCPCS: 99283

== ENCOUNTER 2020-06-18 13:41 | Emergency (ER) | payer MEDICARE, MEDICAID ==
[~2020-06-18] VITALS: Ht 154.9 cm; Wt 68.0 kg
[~2020-06-18 13:41] MED LIST changes: +CEPH500C5 PO; +VALA100031 PO
[2020-06-18 14:30] LABS: BASOPHILS # (AUTO) 0.1 X10'3 (0-0.2); BASOPHILS % (AUTO) 1.1 % (0-1); EOSINOPHILS # (AUTO) 0.6 X10'3 (0-0.9); EOSINOPHILS % (AUTO) 6.5 % (0-6); HEMATOCRIT 37.3 % (35.0-45.0); HEMOGLOBIN 12.4 g/dl (12.0-16.0); LYMPHOCYTES % (AUTO) 33.9 % (21-51); MEAN CORPUSCULAR HEMOGLOBIN 27.8 PG (27.0-31.0); MEAN CORPUSCULAR HGB CONC 33.3 g/dL (33.0-36.5); MEAN CORPUSCULAR VOLUME 83.4 FL (78-98); MEAN PLATELET VOLUME 7.2 FL (7.4-10.4); MONOCYTES # (AUTO) 1.1 X10'3 (0-0.9); MONOCYTES % (AUTO) 12.4 % (2-12); NEUTROPHILS % (AUTO) 46.1 % (42-75); PLATELET COUNT 278 X10'3 (140-440); RED BLOOD COUNT 4.47 X10'6 (4.20-5.60); RED CELL DISTRIBUTION WIDTH 16.3 % (11.5-14.5); WHITE BLOOD COUNT 8.7 X10'3 (4.5-11.0)
[2020-06-18 14:48] LABS: ALANINE AMINOTRANSFERASE 19 U/L (12-78); ALBUMIN 4.1 G/DL (3.4-5.0); ALBUMIN/GLOBULIN RATIO 1.1 (1.1-1.5); ALKALINE PHOSPHATASE 52 IU/L (46-116); ANION GAP 5 (8-16); ASPARTATE AMINO TRANSFERASE 15 U/L (10-37); BILIRUBIN,TOTAL 0.6 MG/DL (0.1-1.0); BLOOD UREA NITROGEN 18 MG/DL (7-18); BUN/CREATININE RATIO 18.6 (6.6-38.0); CALCIUM 9.5 MG/DL (8.5-10.1); CHLORIDE 98 MMOL/L (99-107); CREATININE 0.97 MG/DL (0.40-0.90); GLUCOSE 83 MG/DL (70-104); LIPASE 240 U/L (73-393); POTASSIUM 3.9 MMOL/L (3.5-5.1); SODIUM 133 MMOL/L (135-145); TOTAL CARBON DIOXIDE 30.3 MMOL/L (24-32); TOTAL PROTEIN 7.8 G/DL (6.4-8.2); eGFR 56 ML/MIN
[2020-06-18] MEDS ORDERED: ondansetron/PF 4mg/2ml inj IV ONE (14:50)
[2020-06-18] MEDS ORDERED: pantoprazole 40 MG vial IV ONE (14:50)
[2020-06-18] MEDS ORDERED: normal saline 1000ML IV soln IVB ONE (14:50)
[2020-06-18 15:00] LABS: CLARITY,URINE SLIGHTLY CLOUDY (Clear); COLOR,URINE YELLOW (Yellow); GLUCOSE, URINE NEGATIVE (Neg); KETONES,URINE TRACE mg/dl (Neg); LEUKOCYTE ESTERASE ,URINE MODERATE (Neg); NITRITES, URINE NEGATIVE (Neg); OCCULT BLOOD,URINE NEGATIVE (Neg); PH,URINE 5.5 (4.8-8.0); PROTEIN,URINE NEGATIVE (Neg)
[2020-06-18 15:04] LABS: UA COLLECTION TYPE CLN CATCH MIDSTREAM
[2020-06-18 15:05] LABS: BACTERIA,URINE FEW /HPF (Neg); MUCUS STRANDS NONE SEEN /LPF (Neg); RBC,URINE NONE SEEN /HPF (0-2); RENAL CELLS, URINE FEW /HPF; SQUAMOUS EPITHELIAL CELL,UR FEW /LPF (FEW); TRANSITIONAL EPI CELLS,URINE FEW /HPF; WBC,URINE 0-4 /HPF (0-4)
[2020-06-18] MEDS ORDERED: LIDOcaine Viscous 15ml cup MM ONE (15:25)
[2020-06-18] MEDS ORDERED: mag hydrox/Alum hydrox/simeth 30ml oral suspension PO ONE (15:25)
[2020-06-18] MEDS ORDERED: PANT-47 PO (16:53)
[2020-06-18] MEDS ORDERED: FAMO-128 PO (16:53)
[2020-06-18] MEDS ORDERED: CEPH500C5 PO (16:53)
[2020-06-18 17:16] VITALS: BP 152/81
== END 2020-06-18 17:18 | disposition home or self-care (01) ==
LOC: ER 13:42
DX: K29.00 Acute gastritis without bleeding (principal); N39.0 Urinary tract infection, site not specified; N20.0 Calculus of kidney; R91.8 Other nonspecific abnormal finding of lung field; I10 Essential (primary) hypertension; J44.9 Chronic obstructive pulmonary disease, unspecified; K21.9 Gastro-esophageal reflux disease without esophagitis; G89.29 Other chronic pain; F32.9 Major depressive disorder, single episode, unspecified; F41.9 Anxiety disorder, unspecified; E86.0 Dehydration; Z72.89 Other problems related to lifestyle; Z88.2 Allergy status to sulfonamides; Z88.8 Allergy status to other drugs, medicaments and biological substances; Z79.82 Long term (current) use of aspirin; Z79.899 Other long term (current) drug therapy
CPT/HCPCS: 36415; 74176; 80053; 81001; 83690; 84484; 85025; 87077; 87088; 87186; 96361; 96374; 96375; 99284; C9113; J2405; J7030

== ENCOUNTER 2020-10-31 04:15 | Emergency (ER) | payer MEDICARE, MEDICAID ==
[~2020-10-31] VITALS: Ht 160 cm; Wt 72.7 kg
[~2020-10-31 04:15] MED LIST changes: +FAMO-128 PO; +PANT-47 PO
[2020-10-31 04:18] VITALS: BP 134/73
[2020-10-31] MEDS ORDERED: ONDA4TAB6 PO (04:34)
[2020-10-31] MEDS ORDERED: HYDR-3964 PO (04:34)
[2020-10-31] MEDS ORDERED: ketorolac tromethamine 15mg/ml inj. IM ONE ×2 (04:35→04:50)
== END 2020-10-31 05:14 | disposition home or self-care (01) ==
LOC: ER 04:15
DX: M25.511 Pain in right shoulder (principal); I10 Essential (primary) hypertension; J44.9 Chronic obstructive pulmonary disease, unspecified; K21.9 Gastro-esophageal reflux disease without esophagitis; M19.90 Unspecified osteoarthritis, unspecified site; G89.29 Other chronic pain; F41.9 Anxiety disorder, unspecified; F32.9 Major depressive disorder, single episode, unspecified; Z86.19 Personal history of other infectious and parasitic diseases; Z87.440 Personal history of urinary (tract) infections; Z72.89 Other problems related to lifestyle; Z60.2 Problems related to living alone; Z88.2 Allergy status to sulfonamides; Z88.8 Allergy status to other drugs, medicaments and biological substances; Z79.82 Long term (current) use of aspirin; Z79.2 Long term (current) use of antibiotics; Z79.899 Other long term (current) drug therapy
CPT/HCPCS: 29105; 96372; 99283; J1885

== ENCOUNTER 2020-11-21 14:57 | Emergency (ER) | payer MEDICARE, MEDICAID ==
[~2020-11-21] VITALS: Ht 160 cm; Wt 74.1 kg
[~2020-11-21 14:57] MED LIST changes: +CEPH-585 PO; -CEPH500C5 PO; +HYDR-3964 PO; +ONDA4TAB6 PO
[2020-11-21 15:14] VITALS: BP 139/103
== END 2020-11-21 16:01 | disposition home or self-care (01) ==
LOC: ER 14:58
DX: R05 Cough (principal); Z20.822 Contact with and (suspected) exposure to COVID-19; R53.83 Other fatigue; I10 Essential (primary) hypertension; J44.9 Chronic obstructive pulmonary disease, unspecified; K21.9 Gastro-esophageal reflux disease without esophagitis; M19.90 Unspecified osteoarthritis, unspecified site; F41.9 Anxiety disorder, unspecified; G89.29 Other chronic pain; F32.9 Major depressive disorder, single episode, unspecified; Z86.19 Personal history of other infectious and parasitic diseases; Z87.440 Personal history of urinary (tract) infections; Z72.89 Other problems related to lifestyle; Z60.2 Problems related to living alone; Z88.2 Allergy status to sulfonamides; Z88.8 Allergy status to other drugs, medicaments and biological substances; Z79.82 Long term (current) use of aspirin; Z79.2 Long term (current) use of antibiotics; Z79.899 Other long term (current) drug therapy
CPT/HCPCS: 36415; 87635; 99283

== ENCOUNTER 2020-12-01 03:22 | Emergency (ER) | payer MEDICARE, MEDICAID ==
[~2020-12-01] VITALS: Ht 160 cm; Wt 73.6 kg
[2020-12-01] MEDS ORDERED: HYDR25CA PO (03:37)
[2020-12-01] MEDS ORDERED: hydrOXYzine 25 MG tablet PO ONE (03:40)
[2020-12-01 03:59] VITALS: BP 109/76
== END 2020-12-01 04:01 | disposition home or self-care (01) ==
LOC: ER 03:22
DX: L29.8 Other pruritus (principal); M25.511 Pain in right shoulder; G89.29 Other chronic pain; I10 Essential (primary) hypertension; J44.9 Chronic obstructive pulmonary disease, unspecified; K21.9 Gastro-esophageal reflux disease without esophagitis; M19.90 Unspecified osteoarthritis, unspecified site; F41.9 Anxiety disorder, unspecified; F32.9 Major depressive disorder, single episode, unspecified; F17.210 Nicotine dependence, cigarettes, uncomplicated; Z86.19 Personal history of other infectious and parasitic diseases; Z87.440 Personal history of urinary (tract) infections; Z60.2 Problems related to living alone; Z88.2 Allergy status to sulfonamides; Z88.8 Allergy status to other drugs, medicaments and biological substances; Z79.82 Long term (current) use of aspirin; Z79.899 Other long term (current) drug therapy
CPT/HCPCS: 99283; Q0177

== ENCOUNTER 2020-12-02 16:57 | Emergency (ER) | payer MEDICARE, MEDICAID ==
[~2020-12-02] VITALS: Ht 160 cm; Wt 74.1 kg
[~2020-12-02 16:57] MED LIST changes: +HYDR25CA PO
[2020-12-02] MEDS ORDERED: triamcinolone acetonide 40mg/ml inj IM ONE (17:30)
[2020-12-02 17:44] VITALS: BP 136/81
== END 2020-12-02 17:45 | disposition home or self-care (01) ==
LOC: ER 16:58
DX: R21 Rash and other nonspecific skin eruption (principal); J44.9 Chronic obstructive pulmonary disease, unspecified; K21.9 Gastro-esophageal reflux disease without esophagitis; I10 Essential (primary) hypertension; M19.90 Unspecified osteoarthritis, unspecified site; G89.29 Other chronic pain; F41.9 Anxiety disorder, unspecified; F32.9 Major depressive disorder, single episode, unspecified; Z72.89 Other problems related to lifestyle; Z60.2 Problems related to living alone; Z88.2 Allergy status to sulfonamides; Z88.8 Allergy status to other drugs, medicaments and biological substances; Z79.82 Long term (current) use of aspirin; Z79.899 Other long term (current) drug therapy
CPT/HCPCS: 96372; 99283; J3301

== ENCOUNTER 2020-12-30 21:55 | Emergency (ER) | payer MEDICARE, MEDICAID ==
[~2020-12-30] VITALS: Ht 160 cm; Wt 76.4 kg
[~2020-12-30 21:55] MED LIST changes: -HYDR-3964 PO
[2020-12-30 22:08] VITALS: BP 113/70
[2020-12-30] MEDS ORDERED: PERM60CR4 TOP (22:48)
--- NOTE | 2020-12-30 23:03 | NUR ---
pt here for itchy skin.
== END 2020-12-30 23:04 | disposition home or self-care (01) ==
LOC: ER 21:56
DX: B86 Scabies (principal); I10 Essential (primary) hypertension; M19.90 Unspecified osteoarthritis, unspecified site; G89.29 Other chronic pain; J44.9 Chronic obstructive pulmonary disease, unspecified; K21.9 Gastro-esophageal reflux disease without esophagitis; Z88.2 Allergy status to sulfonamides; Z88.8 Allergy status to other drugs, medicaments and biological substances; Z79.82 Long term (current) use of aspirin; Z79.2 Long term (current) use of antibiotics; Z79.899 Other long term (current) drug therapy; Z86.19 Personal history of other infectious and parasitic diseases; Z72.89 Other problems related to lifestyle
CPT/HCPCS: 99282

== ENCOUNTER 2021-01-02 08:23 | Emergency (ER) | payer MEDICARE, MEDICAID ==
[~2021-01-02] VITALS: Ht 160 cm; Wt 71.8 kg
[~2021-01-02 08:23] MED LIST changes: +PERM60CR4 TOP
[2021-01-02 08:28] VITALS: BP 119/76
[2021-01-02] MEDS ORDERED: PERM60CR19 TOP (08:51)
== END 2021-01-02 09:01 | disposition home or self-care (01) ==
LOC: ER 08:24
DX: L29.9 Pruritus, unspecified (principal); I10 Essential (primary) hypertension; J44.9 Chronic obstructive pulmonary disease, unspecified; K21.9 Gastro-esophageal reflux disease without esophagitis; G89.29 Other chronic pain; M19.90 Unspecified osteoarthritis, unspecified site; Z86.19 Personal history of other infectious and parasitic diseases; Z87.440 Personal history of urinary (tract) infections; Z88.2 Allergy status to sulfonamides; Z88.8 Allergy status to other drugs, medicaments and biological substances; Z79.82 Long term (current) use of aspirin; Z79.2 Long term (current) use of antibiotics; Z79.899 Other long term (current) drug therapy
CPT/HCPCS: 99283

== ENCOUNTER 2021-01-31 10:24 | Emergency (ER) | payer MEDICARE, MEDICAID ==
[~2021-01-31] VITALS: Ht 160 cm; Wt 76.4 kg
[~2021-01-31 10:24] MED LIST changes: -CEPH-585 PO; +PERM60CR19 TOP
[2021-01-31 10:42] VITALS: BP 127/82
== END 2021-01-31 13:19 | disposition left against medical advice (07) ==
LOC: ER 10:25
DX: M54.9 Dorsalgia, unspecified (principal); Z53.21 Procedure and treatment not carried out due to patient leaving prior to being seen by health care provider

== ENCOUNTER 2021-02-23 21:19 | Emergency (ER) | payer MEDICARE, MEDICAID ==
[~2021-02-23] VITALS: Ht 160 cm; Wt 80.5 kg
[~2021-02-23 21:19] MED LIST changes: -PERM60CR19 TOP
[2021-02-23 21:40] VITALS: BP 101/67
[2021-02-23] MEDS ORDERED: CYCL-1 PO (23:41)
== END 2021-02-24 00:56 | disposition home or self-care (01) ==
LOC: ER 21:20
DX: M47.816 Spondylosis without myelopathy or radiculopathy, lumbar region (principal); M54.31 Sciatica, right side; M54.32 Sciatica, left side; I10 Essential (primary) hypertension; J44.9 Chronic obstructive pulmonary disease, unspecified; K21.9 Gastro-esophageal reflux disease without esophagitis; E03.9 Hypothyroidism, unspecified; F41.9 Anxiety disorder, unspecified; F32.9 Major depressive disorder, single episode, unspecified; Z87.448 Personal history of other diseases of urinary system; Z88.2 Allergy status to sulfonamides; Z88.8 Allergy status to other drugs, medicaments and biological substances
CPT/HCPCS: 99284

== ENCOUNTER 2021-02-28 00:30 | Emergency (ER) | payer MEDICARE, MEDICAID ==
[~2021-02-28] VITALS: Ht 160 cm; Wt 80.5 kg
[~2021-02-28 00:30] MED LIST changes: +CYCL-1 PO
[2021-02-28] MEDS ORDERED: ketorolac trometh inj. 60 MG/2 ML VIAL IM ONE (02:30)
[2021-02-28] MEDS ORDERED: orphenadrine citrate 60mg/2ml inj. IM ONE (02:30)
[2021-02-28] MEDS ORDERED: acetaminophen 325mg tablet PO ONE (02:30)
[2021-02-28] MEDS ORDERED: TRAM50TA2 PO (02:42)
[2021-02-28 02:58] VITALS: BP 132/77
== END 2021-02-28 03:32 | disposition home or self-care (01) ==
LOC: ER 00:31
DX: G89.29 Other chronic pain (principal); M54.5 Low back pain; I10 Essential (primary) hypertension; J44.9 Chronic obstructive pulmonary disease, unspecified; K21.9 Gastro-esophageal reflux disease without esophagitis; M19.90 Unspecified osteoarthritis, unspecified site; E07.9 Disorder of thyroid, unspecified; Z88.2 Allergy status to sulfonamides; Z88.8 Allergy status to other drugs, medicaments and biological substances; Z79.82 Long term (current) use of aspirin; Z79.899 Other long term (current) drug therapy; Z87.440 Personal history of urinary (tract) infections
CPT/HCPCS: 96372; 99284; J1885; J2360

== ENCOUNTER 2021-03-06 02:55 | Emergency (ER) | payer MEDICARE, MEDICAID ==
[~2021-03-06] VITALS: Ht 160 cm; Wt 80.5 kg
[~2021-03-06 02:55] MED LIST changes: +TRAM50TA2 PO
[2021-03-06 02:58] VITALS: BP 120/77
[2021-03-06] MEDS ORDERED: ketorolac trometh. 30mg/ml inj. IM ONE (03:30)
[2021-03-06] MEDS ORDERED: LIDO700A32 TOP (03:39)
== END 2021-03-06 03:58 | disposition home or self-care (01) ==
LOC: ER 02:56
DX: M54.41 Lumbago with sciatica, right side (principal); G89.29 Other chronic pain; I10 Essential (primary) hypertension; J44.9 Chronic obstructive pulmonary disease, unspecified; K21.9 Gastro-esophageal reflux disease without esophagitis; M19.90 Unspecified osteoarthritis, unspecified site; Z87.440 Personal history of urinary (tract) infections; Z86.19 Personal history of other infectious and parasitic diseases; Z87.891 Personal history of nicotine dependence; Z88.2 Allergy status to sulfonamides; Z88.8 Allergy status to other drugs, medicaments and biological substances; Z79.82 Long term (current) use of aspirin; Z79.899 Other long term (current) drug therapy
CPT/HCPCS: 96372; 99283; J1885

== ENCOUNTER 2021-04-09 04:38 | Emergency (ER) | payer MEDICARE, MEDICAID ==
[~2021-04-09] VITALS: Ht 160 cm; Wt 72.7 kg
[~2021-04-09 04:38] MED LIST changes: +LIDO700A32 TOP; -TRAM50TA2 PO
[2021-04-09 04:44] VITALS: BP 133/76
[2021-04-09] MEDS ORDERED: ketorolac tromethamine 15mg/ml inj. IM ONE (05:35)
[2021-04-09] MEDS ORDERED: HYDROcodone/acetaminophen 5mg/325mg tablet PO ONE (05:35)
== END 2021-04-09 06:30 | disposition home or self-care (01) ==
LOC: ER 04:41
DX: M54.9 Dorsalgia, unspecified (principal); I10 Essential (primary) hypertension; J44.9 Chronic obstructive pulmonary disease, unspecified; G89.29 Other chronic pain; M19.90 Unspecified osteoarthritis, unspecified site; K21.9 Gastro-esophageal reflux disease without esophagitis; Z87.440 Personal history of urinary (tract) infections; Z86.19 Personal history of other infectious and parasitic diseases; Z72.89 Other problems related to lifestyle; Z88.2 Allergy status to sulfonamides; Z88.8 Allergy status to other drugs, medicaments and biological substances; Z79.82 Long term (current) use of aspirin; Z79.899 Other long term (current) drug therapy; Z87.891 Personal history of nicotine dependence
CPT/HCPCS: 96372; 99283; J1885

== ENCOUNTER 2021-05-03 06:36 | Emergency (ER) | payer MEDICARE, MEDICAID ==
[~2021-05-03] VITALS: Ht 161.3 cm; Wt 73.7 kg
[2021-05-03 06:41] VITALS: BP 129/75
[2021-05-03] MEDS ORDERED: ketorolac tromethamine 15mg/ml inj. IM ONE (08:50)
--- NOTE | 2021-05-03 08:57 | NUR ---
To Xray via wheelchair.
[2021-05-03] MEDS ORDERED: ONDA4TAB6 PO (09:58)
[2021-05-03] MEDS ORDERED: HYDR-3965 PO (09:58)
== END 2021-05-03 10:22 | disposition home or self-care (01) ==
LOC: ER 06:37
DX: S39.012A Strain of muscle, fascia and tendon of lower back, initial encounter (principal); M25.551 Pain in right hip; G89.29 Other chronic pain; I10 Essential (primary) hypertension; J44.9 Chronic obstructive pulmonary disease, unspecified; K21.9 Gastro-esophageal reflux disease without esophagitis; M19.90 Unspecified osteoarthritis, unspecified site; F41.9 Anxiety disorder, unspecified; F32.9 Major depressive disorder, single episode, unspecified; Z86.19 Personal history of other infectious and parasitic diseases; Z87.440 Personal history of urinary (tract) infections; Z72.89 Other problems related to lifestyle; Z60.2 Problems related to living alone; Z88.2 Allergy status to sulfonamides; Z88.8 Allergy status to other drugs, medicaments and biological substances; Z79.82 Long term (current) use of aspirin; Z79.899 Other long term (current) drug therapy; W19.XXXA Unspecified fall, initial encounter; Y93.89 Activity, other specified; Y92.89 Other specified places as the place of occurrence of the external cause; Y99.8 Other external cause status
CPT/HCPCS: 72070; 73502; 96372; 99284; J1885

== ENCOUNTER 2021-05-05 04:10 | Emergency (ER) | payer MEDICARE, MEDICAID ==
[~2021-05-05] VITALS: Ht 160 cm; Wt 73.6 kg
[~2021-05-05 04:10] MED LIST changes: +HYDR-3965 PO
[2021-05-05 04:14] VITALS: BP 147/96
[2021-05-05] MEDS ORDERED: ATI1T PO (06:41)
== END 2021-05-05 07:02 | disposition home or self-care (01) ==
LOC: ER 04:10
DX: F41.9 Anxiety disorder, unspecified (principal); I10 Essential (primary) hypertension; J44.9 Chronic obstructive pulmonary disease, unspecified; K21.9 Gastro-esophageal reflux disease without esophagitis; M19.90 Unspecified osteoarthritis, unspecified site; G89.29 Other chronic pain; F32.9 Major depressive disorder, single episode, unspecified; F17.200 Nicotine dependence, unspecified, uncomplicated; Z86.19 Personal history of other infectious and parasitic diseases; Z87.440 Personal history of urinary (tract) infections; Z72.89 Other problems related to lifestyle; Z60.2 Problems related to living alone; Z88.2 Allergy status to sulfonamides; Z88.8 Allergy status to other drugs, medicaments and biological substances; Z79.82 Long term (current) use of aspirin; Z79.899 Other long term (current) drug therapy
CPT/HCPCS: 99283

== ENCOUNTER 2021-06-24 08:09 | Emergency (ER) | payer MEDICARE, MEDICAID ==
[~2021-06-24] VITALS: Ht 160 cm; Wt 75.5 kg
[~2021-06-24 08:09] MED LIST changes: +ATI1T PO; -HYDR-3965 PO
[2021-06-24] MEDS ORDERED: CYCL-1 PO (08:35)
[2021-06-24] MEDS ORDERED: TRAM50TA2 PO (08:35)
[2021-06-24] MEDS ORDERED: ketorolac tromethamine 15mg/ml inj. IM ONE (08:35)
[2021-06-24 08:58] VITALS: BP 129/99
== END 2021-06-24 09:07 | disposition home or self-care (01) ==
LOC: ER 08:39
DX: M25.511 Pain in right shoulder (principal); M54.16 Radiculopathy, lumbar region; I10 Essential (primary) hypertension; J44.9 Chronic obstructive pulmonary disease, unspecified; K21.9 Gastro-esophageal reflux disease without esophagitis; M19.90 Unspecified osteoarthritis, unspecified site; G89.29 Other chronic pain; Z86.19 Personal history of other infectious and parasitic diseases; Z79.899 Other long term (current) drug therapy; Z72.89 Other problems related to lifestyle; Z79.82 Long term (current) use of aspirin; Z88.2 Allergy status to sulfonamides; Z88.8 Allergy status to other drugs, medicaments and biological substances
CPT/HCPCS: 96372; 99283; J1885

== ENCOUNTER 2021-07-08 07:18 | Emergency (ER) | payer MEDICARE, MEDICAID ==
[~2021-07-08] VITALS: Ht 160 cm; Wt 75.0 kg
[2021-07-08 07:21] VITALS: BP 115/75
[2021-07-08] MEDS ORDERED: ketorolac tromethamine 15mg/ml inj. IM ONE (07:40)
== END 2021-07-08 08:21 | disposition home or self-care (01) ==
LOC: ER 07:19
DX: M54.31 Sciatica, right side (principal); M54.32 Sciatica, left side; G89.29 Other chronic pain; I10 Essential (primary) hypertension; J44.9 Chronic obstructive pulmonary disease, unspecified; K21.9 Gastro-esophageal reflux disease without esophagitis; M19.90 Unspecified osteoarthritis, unspecified site; F41.9 Anxiety disorder, unspecified; F32.9 Major depressive disorder, single episode, unspecified; Z86.19 Personal history of other infectious and parasitic diseases; Z87.440 Personal history of urinary (tract) infections; Z72.89 Other problems related to lifestyle; Z60.2 Problems related to living alone; Z88.2 Allergy status to sulfonamides; Z88.8 Allergy status to other drugs, medicaments and biological substances; Z79.82 Long term (current) use of aspirin; Z79.2 Long term (current) use of antibiotics; Z79.899 Other long term (current) drug therapy
CPT/HCPCS: 96372; 99283; J1885

== ENCOUNTER 2021-08-15 22:40 | Emergency (ER) | payer MEDICARE, MEDICAID ==
[~2021-08-15] VITALS: Ht 160 cm; Wt 72.9 kg
[2021-08-15 22:51] VITALS: BP 156/89
[2021-08-16] MEDS ORDERED: ketorolac tromethamine 15mg/ml inj. IM ONE (01:29)
== END 2021-08-16 01:43 | disposition home or self-care (01) ==
LOC: ER 22:42
DX: M79.604 Pain in right leg (principal); I10 Essential (primary) hypertension; J44.9 Chronic obstructive pulmonary disease, unspecified; K21.9 Gastro-esophageal reflux disease without esophagitis; M19.90 Unspecified osteoarthritis, unspecified site; G89.29 Other chronic pain; F41.9 Anxiety disorder, unspecified; F32.9 Major depressive disorder, single episode, unspecified; Z86.19 Personal history of other infectious and parasitic diseases; Z87.440 Personal history of urinary (tract) infections; Z72.89 Other problems related to lifestyle; Z60.2 Problems related to living alone; Z88.2 Allergy status to sulfonamides; Z88.8 Allergy status to other drugs, medicaments and biological substances; Z79.82 Long term (current) use of aspirin; Z79.899 Other long term (current) drug therapy
CPT/HCPCS: 96372; 99283; J1885

== ENCOUNTER 2021-11-16 17:30 | Emergency (ER) | payer MEDICARE, MEDICAID ==
[~2021-11-16] VITALS: Ht 157.5 cm; Wt 70.8 kg
[2021-11-16 18:25] LABS: BASOPHILS # (AUTO) 0.1 X10'3 (0-0.2); BASOPHILS % (AUTO) 1.2 % (0-1); EOSINOPHILS # (AUTO) 0.6 X10'3 (0-0.9); EOSINOPHILS % (AUTO) 8.4 % (0-6); HEMATOCRIT 40.5 % (35.0-45.0); HEMOGLOBIN 13.6 g/dl (12.0-16.0); LYMPHOCYTES # (AUTO) 1.7 X10'3 (1.1-4.8); LYMPHOCYTES % (AUTO) 24.8 % (21-51); MEAN CORPUSCULAR HEMOGLOBIN 29.1 PG (27.0-31.0); MEAN CORPUSCULAR HGB CONC 33.6 g/dL (33.0-36.5); MEAN CORPUSCULAR VOLUME 86.7 FL (78-98); MEAN PLATELET VOLUME 7.3 FL (7.4-10.4); MONOCYTES % (AUTO) 14.1 % (2-12); NEUTROPHILS # (AUTO) 3.5 X10'3 (1.8-7.7); NEUTROPHILS % (AUTO) 51.5 % (42-75); PLATELET COUNT 293 X10'3 (140-440); RED BLOOD COUNT 4.68 X10'6 (4.20-5.60); RED CELL DISTRIBUTION WIDTH 14.1 % (11.5-14.5); WHITE BLOOD COUNT 6.9 X10'3 (4.5-11.0)
--- NOTE | 2021-11-16 18:49 | NUR ---
PT ROOMED. ASSUMED CARE OF PT.
[2021-11-16] MEDS ORDERED: ketorolac tromethamine 15mg/ml inj. IM ONE (19:00)
[2021-11-16 19:01] LABS: ALANINE AMINOTRANSFERASE 16 U/L (12-78); ALBUMIN 3.8 G/DL (3.4-5.0); ALKALINE PHOSPHATASE 97 IU/L (46-116); ANION GAP 9 (8-16); ASPARTATE AMINO TRANSFERASE 11 U/L (10-37); BILIRUBIN,TOTAL 0.3 MG/DL (0.1-1.0); BLOOD UREA NITROGEN 11 MG/DL (7-18); BUN/CREATININE RATIO 12.1 (6.6-38.0); CHLORIDE 103 MMOL/L (99-107); CREATININE 0.91 MG/DL (0.40-0.90); GLUCOSE 105 MG/DL (70-104); SODIUM 141 MMOL/L (135-145); TOTAL CARBON DIOXIDE 29.5 MMOL/L (24-32); TOTAL PROTEIN 7.5 G/DL (6.4-8.2); eGFR 60 ML/MIN
[2021-11-16 19:12] VITALS: BP 123/87
== END 2021-11-16 19:14 | disposition home or self-care (01) ==
LOC: ER 17:31
DX: R53.1 Weakness (principal); G89.29 Other chronic pain; R11.0 Nausea; I10 Essential (primary) hypertension; J44.9 Chronic obstructive pulmonary disease, unspecified; K21.9 Gastro-esophageal reflux disease without esophagitis; M19.90 Unspecified osteoarthritis, unspecified site; F41.9 Anxiety disorder, unspecified; F32.A Depression, unspecified; Z86.19 Personal history of other infectious and parasitic diseases; Z87.440 Personal history of urinary (tract) infections; Z72.89 Other problems related to lifestyle; Z60.2 Problems related to living alone; Z88.2 Allergy status to sulfonamides; Z88.8 Allergy status to other drugs, medicaments and biological substances; Z79.82 Long term (current) use of aspirin; Z79.899 Other long term (current) drug therapy
CPT/HCPCS: 36415; 80053; 85025; 93005; 96372; 99284; J1885

== ENCOUNTER 2022-02-20 07:46 | Emergency (ER) | payer MEDICARE, MEDICAID ==
[~2022-02-20] VITALS: Ht 160 cm; Wt 69.5 kg
[2022-02-20] MEDS ORDERED: IBUP-1984 PO (12:02)
[2022-02-20] MEDS ORDERED: ketorolac tromethamine 15mg/ml inj. IM ONE (12:10)
[2022-02-20 12:21] VITALS: BP 125/72
== END 2022-02-20 12:22 | disposition home or self-care (01) ==
LOC: ER 07:47
DX: M25.511 Pain in right shoulder (principal); I10 Essential (primary) hypertension; J44.9 Chronic obstructive pulmonary disease, unspecified; K21.9 Gastro-esophageal reflux disease without esophagitis; M19.90 Unspecified osteoarthritis, unspecified site; G89.29 Other chronic pain; Z87.81 Personal history of (healed) traumatic fracture; Z72.89 Other problems related to lifestyle; Z86.19 Personal history of other infectious and parasitic diseases; Z87.440 Personal history of urinary (tract) infections; Z88.2 Allergy status to sulfonamides; Z88.8 Allergy status to other drugs, medicaments and biological substances; Z79.82 Long term (current) use of aspirin; Z79.899 Other long term (current) drug therapy; Z79.2 Long term (current) use of antibiotics
CPT/HCPCS: 73030; 96372; 99283; J1885

== ENCOUNTER 2022-03-21 12:59 | Emergency (ER) | payer MEDICARE, MEDICAID ==
[~2022-03-21] VITALS: Ht 160 cm; Wt 75.5 kg
[~2022-03-21 12:59] MED LIST changes: +IBUP-1984 PO
[2022-03-21 13:32] VITALS: BP 181/79
== END 2022-03-21 17:09 | disposition left against medical advice (07) ==
LOC: ER 12:59
DX: I10 Essential (primary) hypertension (principal); Z53.21 Procedure and treatment not carried out due to patient leaving prior to being seen by health care provider

== ENCOUNTER 2024-08-14 15:23 | Inpatient (IN) | payer MEDICARE, MEDICAID ==
[~2024-08-14] VITALS: Ht 160 cm; Wt 64.5 kg
[~2024-08-14 15:23] MED LIST changes: +ACET325T55 PO; -ALBU18HF2 INH; -ASPI-1265 PO; -ATI1T PO; +ATOR10TA87 PO; +BACL10TA PO; +CETI10TA19 PO; +CHOL100024 PO; -CYCL-1 PO; -DEXL60CA3 PO; -DONE-46 PO; -FAMO-128 PO; +FERR325T28 PO; +FLUT16SP2 BOTHNARES; +FLUT1BLS4 PO; -GABA-534 PO; +GABA-535 PO; +HYDR-3927 PO; -HYDR-4353 PO; -HYDR12.5 PO; -HYDR25CA PO; +HYDR28.484 TOP; -IBUP-1984 PO; +IBUP-1985 PO; -LIDO700A32 TOP; +LIDO700A47 TOP; +METF-1203 PO; +NYST30CR34 TP; -ONDA4TAB6 PO; -OXYB5TAB16 PO; +OXYB5TAB21 PO; -PANT-47 PO; +PANT40TA54 PO; -PERM60CR4 TOP; -PHEN-716 PO; +SUCR1TAB PO; +TRAM50TA2 PO; -TRINTELLIX PO; -UMEC1DIS PO; -VALA100031 PO; +VORT5TAB PO
[2024-08-14 16:49] LABS: BASOPHILS # (AUTO) 0.1 X10'3 (0-0.2); BASOPHILS % (AUTO) 0.5 % (0-1); EOSINOPHILS % (AUTO) 0.3 % (0-6); HEMATOCRIT 38.5 % (35.0-45.0); HEMOGLOBIN 12.4 g/dl (12.0-16.0); LYMPHOCYTES # (AUTO) 1.6 X10'3 (1.1-4.8); MEAN CORPUSCULAR HEMOGLOBIN 28.8 PG (27.0-31.0); MEAN CORPUSCULAR HGB CONC 32.2 g/dL (33.0-36.5); MEAN CORPUSCULAR VOLUME 89.6 FL (78-98); MEAN PLATELET VOLUME 8.6 FL (7.4-10.4); MONOCYTES # (AUTO) 1.7 X10'3 (0-0.9); MONOCYTES % (AUTO) 11.6 % (2-12); NEUTROPHILS # (AUTO) 11.1 X10'3 (1.8-7.7); NEUTROPHILS % (AUTO) 76.6 % (42-75); PLATELET COUNT 260 X10'3 (140-440); RED CELL DISTRIBUTION WIDTH 15.1 % (11.5-14.5); WHITE BLOOD COUNT 14.5 X10'3 (4.5-11.0)
[2024-08-14] MEDS: normal saline 1000ml 1,000 ML IVB ONE (16:56)
[2024-08-14 17:11] LABS: ALANINE AMINOTRANSFERASE 9 U/L (12-78); ALBUMIN 3.3 G/DL (3.4-5.0); ALBUMIN/GLOBULIN RATIO 0.8 (1.1-1.5); ALKALINE PHOSPHATASE 75 IU/L (46-116); ANION GAP 12 (8-16); ASPARTATE AMINO TRANSFERASE 24 U/L (10-37); BILIRUBIN,TOTAL 0.4 MG/DL (0.1-1.0); BLOOD UREA NITROGEN 79 MG/DL (7-18); BUN/CREATININE RATIO 21.4 (10.0-20.0); CALCIUM 10.9 MG/DL (8.5-10.1); CHLORIDE 107 MMOL/L (99-107); CREATININE 3.69 MG/DL (0.40-0.90); GLUCOSE 131 MG/DL (70-104); POTASSIUM 4.4 MMOL/L (3.5-5.1); SODIUM 138 MMOL/L (135-145); TOTAL CARBON DIOXIDE 18.6 MMOL/L (24-32); TOTAL PROTEIN 7.6 G/DL (6.4-8.2); eCRCL 11 ML/MIN; eGFR 12 ML/MIN
[2024-08-14 18:10] LABS: CREATINE KINASE 242 U/L (26-192)
[2024-08-14] MEDS: CefTRIAXone/D5W-Rocephin 1gm 50 ML IV ONE (18:30)
[2024-08-14] MEDS: normal saline 1000ml 1,000 ML IV ONE (19:36)
[2024-08-14] MEDS: acetaminophen 1,000mg/100ml IV 100 ML IV ONE (20:23)
[2024-08-14] MEDS ORDERED: magnesium Cl slow-release 64mg tablet PO PRN (21:25)
[2024-08-14] MEDS: normal saline 1000ml 1,000 ML IV SCH (21:25)
[2024-08-14] MEDS ORDERED: potassium Cl 40MEQ/1/2NS 520ml 520 ML IV PRN (21:25)
[2024-08-14] MEDS ORDERED: magnesium sulf-water 4G/100mL 100 ML IV PRN (21:25)
[2024-08-14] MEDS ORDERED: potassium Cl 20 mEq SR tablet PO PRN (21:25)
[2024-08-14 22:34] LABS: APTT 25 SECONDS (22-32); INR 1.1 INR; PROTHROMBIN TIME 11.5 SECONDS (9.0-12.0)
[2024-08-14 22:35] LABS: MAGNESIUM 1.3 MG/DL (1.5-2.4)
[2024-08-14] MEDS ORDERED: albuterol 2.5 MG/3 ML nebule NEB PRN (23:35)
[2024-08-14] MEDS ORDERED: ipratropium/albuterol 3ml nebule NEB PRN (23:35)
[2024-08-15] VITALS (11 sets, daily range): BP systolic 95–127; BP diastolic 56–86; PULSE 62–90; RESP 14–20; TEMP 97.1–98.2; O2SAT 9–98
[2024-08-15 03:25] LABS: BILIRUBIN,URINE NEGATIVE (Neg); CLARITY,URINE SLIGHTLY CLOUDY (Clear); COLOR,URINE YELLOW (Yellow); GLUCOSE, URINE NEGATIVE (Neg); KETONES,URINE TRACE mg/dl (Neg); LEUKOCYTE ESTERASE ,URINE MODERATE (Neg); NITRITES, URINE NEGATIVE (Neg); OCCULT BLOOD,URINE TRACE-LYSED (Neg); PROTEIN,URINE TRACE mg/dl (Neg); UROBILINOGEN,URINE 0.2 E.U/dL (0.2-1.0)
[2024-08-15 03:45] LABS: UA COLLECTION TYPE CLN CATCH MIDSTREAM
[2024-08-15 03:47] LABS: HYALINE CASTS 0-3 /LPF (NEGATIVE); MUCUS STRANDS FEW /LPF (Neg); TRANSITIONAL EPI CELLS,URINE FEW /HPF; WBC CLUMPS,URINE FEW /HPF (NEGATIVE)
[2024-08-15 03:49] LABS: AMORPHOUS URATES 1+; BACTERIA,URINE 1+ /HPF (Neg); SQUAMOUS EPITHELIAL CELL,UR FEW /LPF (FEW)
[2024-08-15 03:50] LABS: RBC,URINE 0-2 /HPF (0-2)
[2024-08-15] MEDS: magnesium sulf-water 2g/50mL 50 ML IV PRN (04:42)
[2024-08-15 05:12] LABS: URINE AMPHETAMINE SCREEN NEGATIVE (Neg); URINE BARBITUATE SCREEN NEGATIVE (Neg); URINE BENZODIAZEPINES SCREEN NEGATIVE (Neg); URINE CANNABINOID SCREEN NEGATIVE (Neg); URINE COCAINE SCREEN NEGATIVE (Neg); URINE METHADONE SCREEN NEGATIVE (Neg); URINE OPIATE SCREEN NEGATIVE (Neg); URINE PHENCYCLIDINE SCREEN NEGATIVE (Neg)
[2024-08-15] MEDS: docusate sod 100mg capsule PO SCH (08:00)
[2024-08-15 08:08] LABS: BASOPHILS # (AUTO) 0.1 X10'3 (0-0.2); BASOPHILS % (AUTO) 0.6 % (0-1); EOSINOPHILS # (AUTO) 0.3 X10'3 (0-0.9); EOSINOPHILS % (AUTO) 2.6 % (0-6); HEMATOCRIT 32.2 % (35.0-45.0); LYMPHOCYTES # (AUTO) 1.8 X10'3 (1.1-4.8); LYMPHOCYTES % (AUTO) 17.1 % (21-51); MEAN CORPUSCULAR HEMOGLOBIN 29.9 PG (27.0-31.0); MEAN CORPUSCULAR HGB CONC 34.1 g/dL (33.0-36.5); MEAN CORPUSCULAR VOLUME 87.8 FL (78-98); MEAN PLATELET VOLUME 8.4 FL (7.4-10.4); MONOCYTES # (AUTO) 1.3 X10'3 (0-0.9); MONOCYTES % (AUTO) 12.5 % (2-12); NEUTROPHILS # (AUTO) 6.9 X10'3 (1.8-7.7); NEUTROPHILS % (AUTO) 67.2 % (42-75); PLATELET COUNT 237 X10'3 (140-440); RED BLOOD COUNT 3.67 X10'6 (4.20-5.60); RED CELL DISTRIBUTION WIDTH 14.9 % (11.5-14.5); WHITE BLOOD COUNT 10.2 X10'3 (4.5-11.0)
[2024-08-15 08:22] LABS: ALANINE AMINOTRANSFERASE 11 U/L (12-78); ALBUMIN 2.8 G/DL (3.4-5.0); ALBUMIN/GLOBULIN RATIO 0.7 (1.1-1.5); ALKALINE PHOSPHATASE 63 IU/L (46-116); ANION GAP 10 (8-16); ASPARTATE AMINO TRANSFERASE 28 U/L (10-37); BILIRUBIN,TOTAL 0.4 MG/DL (0.1-1.0); BLOOD UREA NITROGEN 56 MG/DL (7-18); BUN/CREATININE RATIO 25.3 (10.0-20.0); CALCIUM 9.2 MG/DL (8.5-10.1); CHLORIDE 111 MMOL/L (99-107); CREATININE 2.21 MG/DL (0.40-0.90); GLUCOSE 87 MG/DL (70-104); PHOSPHORUS 2.1 MG/DL (2.3-4.5); POTASSIUM 3.6 MMOL/L (3.5-5.1); SODIUM 142 MMOL/L (135-145); TOTAL PROTEIN 6.7 G/DL (6.4-8.2); eCRCL 18 ML/MIN; eGFR 22 ML/MIN
[2024-08-15] MEDS: CefTRIAXone/D5W-Rocephin 1gm 50 ML IV SCH (08:33)
[2024-08-15] MEDS: pantoprazole 40 MG vial IV SCH (08:42)
[2024-08-15] MEDS: heparin, porcine 5000 units/ml vial SQ SCH (08:42)
[2024-08-15] MEDS: K and/or MAG REPLACEMENT MC SCH (08:47)
[2024-08-15] MEDS: magnesium hydroxide 30ml (MOM) UD suspension PO ONE (15:31)
[2024-08-16] VITALS (8 sets, daily range): BP systolic 117–132; BP diastolic 65–85; PULSE 68–85; RESP 16–22; TEMP 97.5–98.7; O2SAT 96–100
[2024-08-16 06:42] LABS: BASOPHILS % (AUTO) 0.6 % (0-1); EOSINOPHILS # (AUTO) 0.3 X10'3 (0-0.9); EOSINOPHILS % (AUTO) 3.7 % (0-6); HEMATOCRIT 26.9 % (35.0-45.0); HEMOGLOBIN 8.9 g/dl (12.0-16.0); LYMPHOCYTES # (AUTO) 1.5 X10'3 (1.1-4.8); MEAN CORPUSCULAR HEMOGLOBIN 29.1 PG (27.0-31.0); MEAN CORPUSCULAR HGB CONC 32.9 g/dL (33.0-36.5); MEAN CORPUSCULAR VOLUME 88.3 FL (78-98); MEAN PLATELET VOLUME 8.1 FL (7.4-10.4); MONOCYTES # (AUTO) 1.1 X10'3 (0-0.9); MONOCYTES % (AUTO) 14.2 % (2-12); NEUTROPHILS # (AUTO) 4.8 X10'3 (1.8-7.7); NEUTROPHILS % (AUTO) 62.5 % (42-75); PLATELET COUNT 190 X10'3 (140-440); RED BLOOD COUNT 3.05 X10'6 (4.20-5.60); RED CELL DISTRIBUTION WIDTH 15.2 % (11.5-14.5); WHITE BLOOD COUNT 7.7 X10'3 (4.5-11.0)
[2024-08-16 06:55] LABS: ALANINE AMINOTRANSFERASE 10 U/L (12-78); ALBUMIN 2.2 G/DL (3.4-5.0); ALBUMIN/GLOBULIN RATIO 0.7 (1.1-1.5); ALKALINE PHOSPHATASE 44 IU/L (46-116); ANION GAP 9 (8-16); ASPARTATE AMINO TRANSFERASE 19 U/L (10-37); BILIRUBIN,TOTAL 0.4 MG/DL (0.1-1.0); BLOOD UREA NITROGEN 34 MG/DL (7-18); BUN/CREATININE RATIO 24.6 (10.0-20.0); CALCIUM 8.2 MG/DL (8.5-10.1); CHLORIDE 116 MMOL/L (99-107); CREATININE 1.38 MG/DL (0.40-0.90); GLUCOSE 95 MG/DL (70-104); MAGNESIUM 1.8 MG/DL (1.5-2.4); PHOSPHORUS 1.8 MG/DL (2.3-4.5); POTASSIUM 3.5 MMOL/L (3.5-5.1); SODIUM 146 MMOL/L (135-145); TOTAL CARBON DIOXIDE 20.8 MMOL/L (24-32); TOTAL PROTEIN 5.4 G/DL (6.4-8.2); eCRCL 28 ML/MIN; eGFR 37 ML/MIN
[2024-08-16] MEDS: dextrose 5%-water 1,000 ML IV SCH (10:11)
[2024-08-17 02:00] VITALS: BP 135/72; PULSE 72; RESP 20; TEMP 98.2; O2SAT 100
[2024-08-17] MEDS: Neutra Phos packet PO PRN (03:29)
[2024-08-17] MEDS: ondansetron/PF 4mg/2ml inj IV PRN (03:29)
[2024-08-17 06:00] VITALS: BP 147/87; PULSE 71; RESP 18; TEMP 98.9; O2SAT 98
[2024-08-17 07:31] LABS: BASOPHILS # (AUTO) 0.1 X10'3 (0-0.2); BASOPHILS % (AUTO) 0.5 % (0-1); EOSINOPHILS # (AUTO) 0.2 X10'3 (0-0.9); EOSINOPHILS % (AUTO) 2.1 % (0-6); HEMATOCRIT 31.3 % (35.0-45.0); HEMOGLOBIN 9.9 g/dl (12.0-16.0); LYMPHOCYTES # (AUTO) 1.6 X10'3 (1.1-4.8); LYMPHOCYTES % (AUTO) 16.7 % (21-51); MEAN CORPUSCULAR HEMOGLOBIN 28.6 PG (27.0-31.0); MEAN CORPUSCULAR HGB CONC 31.8 g/dL (33.0-36.5); MEAN CORPUSCULAR VOLUME 89.8 FL (78-98); MEAN PLATELET VOLUME 7.8 FL (7.4-10.4); MONOCYTES # (AUTO) 0.9 X10'3 (0-0.9); MONOCYTES % (AUTO) 9.8 % (2-12); NEUTROPHILS # (AUTO) 6.7 X10'3 (1.8-7.7); NEUTROPHILS % (AUTO) 70.9 % (42-75); PLATELET COUNT 198 X10'3 (140-440); RED BLOOD COUNT 3.48 X10'6 (4.20-5.60); RED CELL DISTRIBUTION WIDTH 15.8 % (11.5-14.5); WHITE BLOOD COUNT 9.5 X10'3 (4.5-11.0)
[2024-08-17 08:00] VITALS: RESP 18; O2SAT 98
[2024-08-17 08:09] LABS: ALANINE AMINOTRANSFERASE 12 U/L (12-78); ALBUMIN 2.6 G/DL (3.4-5.0); ALBUMIN/GLOBULIN RATIO 0.7 (1.1-1.5); ALKALINE PHOSPHATASE 54 IU/L (46-116); ANION GAP 12 (8-16); ASPARTATE AMINO TRANSFERASE 22 U/L (10-37); BILIRUBIN,TOTAL 0.3 MG/DL (0.1-1.0); BLOOD UREA NITROGEN 20 MG/DL (7-18); BUN/CREATININE RATIO 17.1 (10.0-20.0); CALCIUM 8.6 MG/DL (8.5-10.1); CHLORIDE 108 MMOL/L (99-107); CREATININE 1.17 MG/DL (0.40-0.90); GLUCOSE 140 MG/DL (70-104); MAGNESIUM 1.7 MG/DL (1.5-2.4); PHOSPHORUS 1.7 MG/DL (2.3-4.5); POTASSIUM 3.2 MMOL/L (3.5-5.1); SODIUM 138 MMOL/L (135-145); TOTAL CARBON DIOXIDE 18.1 MMOL/L (24-32); TOTAL PROTEIN 6.5 G/DL (6.4-8.2); eCRCL 33 ML/MIN; eGFR 45 ML/MIN
[2024-08-17] MEDS: pantoprazole 40mg Tablet.DR PO SCH (08:15)
[2024-08-17] MEDS: potassium Cl 20 mEq SR tablet PO PRN (08:32)
[2024-08-17 11:30] VITALS: BP 127/104; PULSE 81; RESP 16; TEMP 97.7; O2SAT 98
[2024-08-17] MEDS: acetaminophen 325mg tablet PO PRN (16:44)
[2024-08-17 20:00] VITALS: RESP 16; O2SAT 97
[2024-08-17 21:07] VITALS: PULSE 69; RESP 18; O2SAT 99
[2024-08-18 06:00] VITALS: BP 106/75; PULSE 85; RESP 17; TEMP 97.5; O2SAT 97
[2024-08-18 08:00] VITALS: RESP 17; O2SAT 97
[2024-08-18 08:03] LABS: BASOPHILS % (AUTO) 0.5 % (0-1); EOSINOPHILS # (AUTO) 0.3 X10'3 (0-0.9); EOSINOPHILS % (AUTO) 3.9 % (0-6); HEMATOCRIT 27.3 % (35.0-45.0); HEMOGLOBIN 9.2 g/dl (12.0-16.0); LYMPHOCYTES # (AUTO) 1.5 X10'3 (1.1-4.8); LYMPHOCYTES % (AUTO) 18.4 % (21-51); MEAN CORPUSCULAR HEMOGLOBIN 29.7 PG (27.0-31.0); MEAN CORPUSCULAR HGB CONC 33.8 g/dL (33.0-36.5); MEAN CORPUSCULAR VOLUME 87.7 FL (78-98); MEAN PLATELET VOLUME 7.9 FL (7.4-10.4); MONOCYTES % (AUTO) 11.9 % (2-12); NEUTROPHILS # (AUTO) 5.4 X10'3 (1.8-7.7); NEUTROPHILS % (AUTO) 65.3 % (42-75); PLATELET COUNT 191 X10'3 (140-440); RED BLOOD COUNT 3.11 X10'6 (4.20-5.60); RED CELL DISTRIBUTION WIDTH 14.8 % (11.5-14.5); WHITE BLOOD COUNT 8.3 X10'3 (4.5-11.0)
[2024-08-18 08:30] LABS: ALANINE AMINOTRANSFERASE 11 U/L (12-78); ALBUMIN 2.4 G/DL (3.4-5.0); ALBUMIN/GLOBULIN RATIO 0.7 (1.1-1.5); ALKALINE PHOSPHATASE 52 IU/L (46-116); ANION GAP 9 (8-16); ASPARTATE AMINO TRANSFERASE 17 U/L (10-37); BILIRUBIN,TOTAL 0.5 MG/DL (0.1-1.0); BLOOD UREA NITROGEN 8 MG/DL (7-18); BUN/CREATININE RATIO 8.2 (10.0-20.0); CALCIUM 8.1 MG/DL (8.5-10.1); CHLORIDE 105 MMOL/L (99-107); CREATININE 0.97 MG/DL (0.40-0.90); GLUCOSE 92 MG/DL (70-104); MAGNESIUM 1.2 MG/DL (1.5-2.4); PHOSPHORUS 2.1 MG/DL (2.3-4.5); POTASSIUM 3.3 MMOL/L (3.5-5.1); SODIUM 137 MMOL/L (135-145); TOTAL CARBON DIOXIDE 22.6 MMOL/L (24-32); TOTAL PROTEIN 5.9 G/DL (6.4-8.2); eCRCL 40 ML/MIN; eGFR 56 ML/MIN
[2024-08-18] MEDS ORDERED: potassium Cl 20 mEq SR tablet PO PRN (09:50)
[2024-08-18] MEDS ORDERED: potassium Cl 40MEQ/1/2NS 520ml 520 ML IV PRN (09:50)
[2024-08-18] MEDS: potassium Cl 20 mEq SR tablet PO PRN (10:30)
[2024-08-18 11:00] VITALS: BP 148/89; PULSE 99; RESP 18; TEMP 97.8; O2SAT 97
[2024-08-18] MEDS ORDERED: CIPR-202 PO (13:28)
[2024-08-18] MEDS ORDERED: K and/or MAG REPLACEMENT MC SCH (20:00)
== END 2024-08-18 14:23 | disposition home health service (06) | DRG 871 ==
LOC: ER 15:28 → ED HOLD 21:28 → PCU 3S 08-15 01:53
PROVIDERS: ADMIT Surgery Surgical Critical Care; ATTEND Nurse Practitioner Family
PROC: 05HC33Z Insertion of Infusion Device into Left Basilic Vein, Percutaneous Approach (ICD-10-PCS; principal; 2024-08-18)
DX: A41.9 Sepsis, unspecified organism (principal); G93.41 Metabolic encephalopathy; N39.0 Urinary tract infection, site not specified; N17.9 Acute kidney failure, unspecified; E87.0 Hyperosmolality and hypernatremia; I10 Essential (primary) hypertension; Z60.2 Problems related to living alone; F31.9 Bipolar disorder, unspecified; G89.29 Other chronic pain; F41.9 Anxiety disorder, unspecified; J44.9 Chronic obstructive pulmonary disease, unspecified; M54.9 Dorsalgia, unspecified; E11.9 Type 2 diabetes mellitus without complications; K21.9 Gastro-esophageal reflux disease without esophagitis; Z88.2 Allergy status to sulfonamides; Z79.899 Other long term (current) drug therapy; Z79.84 Long term (current) use of oral hypoglycemic drugs; Z87.891 Personal history of nicotine dependence; Z88.8 Allergy status to other drugs, medicaments and biological substances
CPT/HCPCS: 36410; 36415; 70450; 71045; 73030; 76770; 76937; 80053; 80305; 81001; 82550; 82570; 83036; 83605; 83735; 84100; 84133; 84145; 84300; 85025; 85610; 85730; 87040; 87077; 87081; 87088; 87186; 92508; 92616; 93005; 94760; 96365; 96367; 97116; 97161; 97530; 97535; 99285; C1751; G0378; J0131; J0696; J1644; J2405; J2470; J7030; J7042; J7070

== ENCOUNTER 2024-12-13 01:45 | Emergency (ER) | payer MEDICARE, MEDICAID ==
[~2024-12-13] VITALS: Ht 160 cm; Wt 53.3 kg
[~2024-12-13 01:45] MED LIST changes: -FERR325T28 PO; -IBUP-1985 PO; -LIDO700A47 TOP; -NYST30CR34 TP
[2024-12-13 01:47] VITALS: BP 165/101; PULSE 95; RESP 18; TEMP 98.1; O2SAT 99
== END 2024-12-13 04:43 | disposition left against medical advice (07) ==
LOC: ER 01:47
DX: T78.40XA Allergy, unspecified, initial encounter (principal); Z88.2 Allergy status to sulfonamides; Z91.030 Bee allergy status; Z88.8 Allergy status to other drugs, medicaments and biological substances; Z53.21 Procedure and treatment not carried out due to patient leaving prior to being seen by health care provider; X58.XXXA Exposure to other specified factors, initial encounter; Y93.89 Activity, other specified; Y92.89 Other specified places as the place of occurrence of the external cause; Y99.8 Other external cause status

== ENCOUNTER 2024-12-31 00:38 | Emergency (ER) | payer MEDICARE, MEDICAID ==
[~2024-12-31] VITALS: Ht 160 cm; Wt 52.0 kg
[2024-12-31 01:29] LABS: BASOPHILS # (AUTO) 0.1 X10'3 (0-0.2); EOSINOPHILS # (AUTO) 0.6 X10'3 (0-0.9); EOSINOPHILS % (AUTO) 5.7 % (0-6); HEMATOCRIT 31.4 % (35.0-45.0); HEMOGLOBIN 10.3 g/dl (12.0-16.0); LYMPHOCYTES # (AUTO) 2.3 X10'3 (1.1-4.8); LYMPHOCYTES % (AUTO) 22.9 % (21-51); MEAN CORPUSCULAR HEMOGLOBIN 29.4 PG (27.0-31.0); MEAN CORPUSCULAR HGB CONC 32.8 g/dL (33.0-36.5); MEAN CORPUSCULAR VOLUME 89.8 FL (78-98); MEAN PLATELET VOLUME 7.3 FL (7.4-10.4); MONOCYTES # (AUTO) 1.1 X10'3 (0-0.9); MONOCYTES % (AUTO) 11.3 % (2-12); NEUTROPHILS # (AUTO) 5.9 X10'3 (1.8-7.7); NEUTROPHILS % (AUTO) 59.1 % (42-75); PLATELET COUNT 301 X10'3 (140-440); RED CELL DISTRIBUTION WIDTH 15.5 % (11.5-14.5); WHITE BLOOD COUNT 9.9 X10'3 (4.5-11.0)
[2024-12-31 01:47] LABS: ALBUMIN 3.5 G/DL (3.4-5.0); ANION GAP 4 (8-16); BLOOD UREA NITROGEN 26 MG/DL (7-18); BUN/CREATININE RATIO 22.4 (10.0-20.0); CALCIUM 9.4 MG/DL (8.5-10.1); CHLORIDE 107 MMOL/L (99-107); CREATININE 1.16 MG/DL (0.40-0.90); GLUCOSE 94 MG/DL (70-104); POTASSIUM 4.4 MMOL/L (3.5-5.1); SODIUM 141 MMOL/L (135-145); TOTAL CARBON DIOXIDE 30.2 MMOL/L (24-32); eCRCL 33 ML/MIN; eGFR 45 ML/MIN
[2024-12-31 02:00] LABS: ETHANOL < 10 MG/DL (<10)
[2024-12-31] MEDS: acetaminophen 325mg tablet PO ONE (03:04)
[2024-12-31 03:10] VITALS: BP 154/99; PULSE 95; RESP 16; TEMP 98.2; O2SAT 97
== END 2024-12-31 03:15 | disposition home or self-care (01) ==
LOC: ER 00:39
DX: R42 Dizziness and giddiness (principal); R25.1 Tremor, unspecified; H54.7 Unspecified visual loss; M19.90 Unspecified osteoarthritis, unspecified site; I10 Essential (primary) hypertension; J44.9 Chronic obstructive pulmonary disease, unspecified; E07.9 Disorder of thyroid, unspecified; G89.29 Other chronic pain; M54.9 Dorsalgia, unspecified; K21.9 Gastro-esophageal reflux disease without esophagitis; F41.9 Anxiety disorder, unspecified; F32.A Depression, unspecified; Z79.01 Long term (current) use of anticoagulants; Z79.84 Long term (current) use of oral hypoglycemic drugs; Z79.899 Other long term (current) drug therapy; Z88.2 Allergy status to sulfonamides; Z91.030 Bee allergy status; Z88.8 Allergy status to other drugs, medicaments and biological substances; Z60.2 Problems related to living alone
CPT/HCPCS: 36415; 70450; 71045; 80048; 82948; 84145; 84484; 85025; 93005; 99285; G0480; 80320